=== PATIENT | female | born 1980 | race Two or more races ===

== ENCOUNTER 2020-10-16 12:37 | Emergency (ER) | payer OTHER, SELFPAY ==
[2020-10-16] VITALS (8 sets, daily range): BP systolic 102–158; BP diastolic 51–88; PULSE 56–92; RESP 18–20; TEMP 36.6–37; O2SAT 98–100; BMI 37.8
--- NOTE | 2020-10-16 11:03 | ECG_ITS ---
Test Reason : SYNCOPE Blood Pressure : / mmHG Vent. Rate : 062 BPM Atrial Rate : 062 BPM P-R Int : 118 ms QRS Dur : 082 ms QT Int : 398 ms P-R-T Axes : 024 020 014 degrees QTc Int : 403 ms Normal sinus rhythm Normal ECG When compared with ECG of 06-APR-2020 07:25, No significant change was found Referred By: Daphnie Lewis Electronically Signed By:HAYLEE LUGO MD
[2020-10-16] MEDS: Acetaminophen 325 MG TABLET PO (17:16)
[2020-10-16] MEDS: Acetaminophen 325 MG TABLET 650 MG PO (17:16)
--- NOTE | 2020-10-16 17:19 | CT_ITS ---
EXAMINATION: CT HEAD WITHOUT CONTRAST CT CERVICAL SPINE WITHOUT CONTRAST CLINICAL INFORMATION: Fall COMPARISON: None. TECHNIQUE: Multidetector CT imaging of the head and cervical spine was performed without the use of intravenous contrast. Multiplanar reformats are reviewed. This CT examination was performed using dose optimization techniques as appropriate, variously including the following: *Automated exposure control *Adjustment of mA and/or kV according to patient size (this includes techniques or standardized protocols for targeted exams where dose is matched to indication/reason for exam; i.e. extremities or head) *Use of iterative reconstruction technique DLP: 1095 mGy-cm. FINDINGS: There is no evidence of acute intracranial hemorrhage or territorial infarction. No abnormal mass effect or midline shift is seen. Norton to white matter differentiation is well preserved. No extra-axial fluid collections are identified. The ventricles are normal in size. There is no abnormal attenuation within the brain parenchyma. Thin right parietal subgaleal hematoma. Underlying calvarium is intact.. Mucus retention cyst present within the right maxillary sinus. Remainder of the paranasal sinuses are clear. Mastoid air cells are clear. Atlantooccipital alignment is maintained. The vertebral bodies and posterior elements align normally. No acute fracture or subluxation. Vertebral body heights and intervertebral disc spaces are preserved. No significant degenerative changes are appreciated. No central canal or foraminal narrowing. The cervicomedullary junction and spinal cord are grossly unremarkable. The paraspinal soft tissues are unremarkable. The imaged lung apices are clear CT/CT cervical spine wo con IMPRESSION: No acute intracranial pathology. No cervical spine fracture or malalignment.
--- NOTE | 2020-10-16 17:42 | ED.SYNCOPE ---
HPI - Syncope General Chief Complaint: Syncope Stated Complaint: ? seizure Time Seen by Provider: 10/16/20 14:46 Source: patient Mode of arrival: ambulatory Limitations: no limitations History of Present Illness HPI narrative: 40-year-old female who presents emergency department for evaluation of a syncopal episode. The patient states that last night around midnight she became dizzy. She states that she felt like she was going to pass out. She states that she got up until 2 or 3 steps, the dizziness got worse and she fell backwards striking her head. She states that she had a 2-3 minute loss of consciousness. She states that she had no memory of falling. The patient states that she gets dizzy often but has never passed out. She states that approximately 1 and half months prior she was sitting in her kitchen when she again felt dizzy as if she was going to pass out. She states that her hands became numb. She states that her legs became numb. She states that she walked to her bedroom and then collapsed into our bed since she had no strength. She states that her symptoms lasted 10-15 minutes at that time. Patient also states that she has had episodes that when she had episodes of confusion when she is driving. She states that occasionally while driving, she does not know where she is and has difficulty orienting herself. She also states that her night vision is poor and this has gotten worse. The patient is currently complaining of headache. She states that the pain is located in the back of her head where she struck her head on the floor. She says the headache as a constant, throbbing sensation which is moderate in intensity. She denied nausea, vomiting, numbness or weakness. Related Data Allergies Allergy/AdvReac Type Severity Reaction Status Date / Time morphine [MORPHINE] Allergy Unknown DIFFICULTY Verified 10/16/20 12:43 BREATHING Review of Systems Review of Systems: Yes all other systems are reviewed and are negative Constitutional: Constitutional: Reports as per HPI Eyes: Eyes: Reports as per HPI ENT: Reports as per HPI Cardiovascular: Cardiovascular: Reports as per HPI Respiratory: Respiratory: Reports as per HPI Gastrointestinal: Gastrointestinal: Reports as per HPI Genitourinary: Genitourinary: Reports as per HPI Musculoskeletal: Musculoskeletal: Reports as per HPI Integumentary/Breasts: Skin/Breast: Reports as per HPI Neurologic: Reports as per HPI and Reports Abnormal speech present Psychiatric: Psychiatric: Reports as per HPI Allergic/Immunologic: Allergic/Immunologic: Reports as per HPI [facility] Past Medical History Attestation statement: The following information was validated with the patient. Medical History Cervical ca Surgical History H/O tubal ligation History of cholecystectomy Social History Social History Alcohol intake: never Smoked in Last 30 Days: No Use of substances other than those prescribed or required for medical reasons: No Advance Directives: No Advance Directives Information Provided: No Physical Exam Vital Signs: Vital Signs: Last Vital Signs Temp 98 F 10/16/20 15:28 Pulse 70 10/16/20 15:28 Resp 19 10/16/20 15:28 BP 119/77 10/16/20 15:28 Pulse Ox 100 10/16/20 15:28 Body Mass Index 37.8 Const: General: cooperative, no acute distress, alert and awake Orientation/consciousness: oriented to person and oriented to place Limitations: no limitations HENMT: Head: Yes normal to inspection, Yes normocephalic and Yes other (The patient has a small occipital hematoma which is tender to palpation) Ears: external ears normal General nose exam: Normal external nose present Face and sinus: Yes normal facial exam Mouth: Normal oral and palatal mucosa present Throat: Yes posterior oropharynx normal Eyes: General: appearance normal, both eyes and all related structures Periorbital: periorbital findings normal Eyelids: Yes eyelids normal Conjunctivae: conjunctivae normal Sclerae: sclerae normal Corneas: corneas normal Pupils: Equal, round and reactive pupils present Direct Ophthalmoscopy: normal light reflex Neck: Neck: Yes normal visual inspection and Yes supple Lymphatic: no lymphadenopathy noted Chest: Chest palpation & inspection: normal inspection of the chest and normal palpation of entire chest wall Resp: Effort & Inspection: normal respiratory effort, abnormal respiratory pattern, no audible wheezes and no respiratory distress Auscultation: clear to auscultation bilaterally, no crackles, no rales, no rhonchi and no wheezes Cardio: Rate: regular rate Rhythm: regular rhythm Heart sounds: S1 normal heart sound present, S2 normal heart sound present and no murmurs GI: Inspection: No distended Palpation (GI): Soft to palpation, nontender, no guarding and No hepatosplenomegaly present Auscultation: normal bowel sounds : General: Yes no CVA tenderness Back/Spine/Pelvis: Back: no CVA tenderness Skin: General skin exam: no rashes or lesions noted Lesions: no lesions Rashes: no rashes Wounds: no wounds Neuro: General: oriented to person and oriented to place Cranial nerves: Yes CN's II-XII intact bilaterally and Yes Equal, round and reactive pupils present Cognition (Neuro): normal cognition Speech: Abnormal speech present Motor exam (neuro): 5/5 motor strength present throughout Extrem: General: Yes normal to inspection, Yes full ROM, Yes no pedal edema and Yes no calf tenderness Psych: Appearance: grossly normal Mental Status: mental status grossly normal Speech and movement: Clear speech present Affect: normal affect Thought process: Normal thought process present Course Course Course Narrative: 40-year-old female who presents to the emergency department for evaluation of a syncopal episode that occurred around midnight which caused her to fall backwards and strike her head. She did have a 2-3 minute loss of consciousness. She has a headache and does have a small palpable hematoma to her scalp. This is the patient's 2nd syncopal episode and she had an episode approximately 1 and half months prior. The patient's neurologic exam was nonfocal. The patient's 12 lead EKG revealed no acute abnormalities. I did order a CT scan of the patient's head and neck. I also ordered a cardiac workup on this patient. The patient's headache was treated with Tylenol 975 mg orally. 1803: Unfortunately, there was a laboratory and x-ray were during her on my part and the patient has had a delay in her workup. The patient's care was turned over to my colleague, Dr. Daphnie Churchill's for disposition. MDM - Syncope ECG Data Attestation: I personally reviewed and interpreted this ECG as follows: ECG interpretation date: 10/16/20 ECG interpretation time: 15:50 Prior ECG tracings: not available for review Interpretation: Normal sinus rhythm with rate of 62, normal intervals, inverted T-wave in lead 3, no ST segment elevation, no ST segment depression, normal EKG. Discharge Plan Discharge Clinical Impression: Syncope, Fall, Closed head injury
[2020-10-16 18:18] LABS: MANUAL DIFF FLAG NO
[2020-10-16 18:19] LABS: Basophils Percent Auto 0.3 % (0-2); Eosinophils Percent Auto 0.3 % (0-4); Hematocrit 40.6 % (37-47); Hemoglobin 13.4 g/dl (12.0-16.0); Imm Gran Abs Auto 0.04 X10*3/uL (0.00-0.03); Imm Gran Pct Auto 0.4 % (0.0-0.4); Lymphocytes Absolute Auto 1.9 X10*3/uL (1.2-4.9); Lymphocytes Percent Auto 18.5 % (20-40); Mean Corpuscular Volume 84.8 fL (80-98); Mean Platelet Volume 9.6 fL (9.4-12.3); Monocytes Percent Auto 10.4 % (2-11); Neutrophils Percent Auto 70.1 % (45-73); Platelet Count 445 X10*3/uL (160-400); Red Blood Count 4.79 X10*6/uL (4.20-5.50); Red Cell Distribution Width 15.2 % (11.0-16.0)
[2020-10-16 18:21] LABS: Glucose Urine UA NEG (NEG); Leukocyte Esterase Urine NEG (NEG); Nitrite Urine NEG (NEG); PH 5.5 (5.0-8.0); Specific Gravity - Urine >= 1.030 (1.005-1.025); Urine Blood NEG (NEG); Urine Ketones NEG (NEG); Urine Protein TRACE MG/DL (NEG-TRACE)
[2020-10-16 18:22] LABS: Appearance Urine CLEAR; Color Urine DARK YELLOW
[2020-10-16 19:50] LABS: Alanine Aminotransferase 11 U/L (0-31); Albumin Level 4.1 g/dL (3.5-5.0); Alkaline Phosphatase 115 U/L (39-117); Anion Gap 14 (12-20); Aspartate Amino Transferase 13 U/L (5-31); Bilirubin Direct 0.4 mg/dL (0.0-0.5); Bilirubin Total 0.8 mg/dL (0.0-1.0); Blood Urea Nitrogen 10 mg/dL (9-16); Carbon Dioxide 22 mmol/L (22-29); Chloride 106 mmol/L (96-108); Creatinine Clr Calc Pharmacy 121.7; Estimated Glomerular Filt Rate > 60; Glucose Random 84 mg/dL (60-115); Potassium 3.5 mmol/l (3.3-5.1); Sodium 138 mmol/L (135-145); Total Protein 7.2 g/dL (6.5-8.0)
[2020-10-16] MEDS: 0.9 % Sodium Chloride 1,000 ML 999 ML IVCONT ×2 (20:15)
== END 2020-10-16 22:16 | disposition home or self-care (01) ==
PROVIDERS: Emergency Medicine Emergency Medical Services; Emergency Provider Emergency Medicine; PCP Internal Medicine
DX: R55 Syncope and collapse (principal); S09.90XA Unspecified injury of head, initial encounter; W19.XXXA Unspecified fall, initial encounter; Y93.9 Activity, unspecified; Y92.013 Bedroom of single-family (private) house as the place of occurrence of the external cause; Y99.9 Unspecified external cause status; Z85.41 Personal history of malignant neoplasm of cervix uteri
CPT/HCPCS: 36415; 70450; 72125; 80048; 80076; 81003; 85025; 93005; 96360; 99284; 99285

== ENCOUNTER 2021-01-28 20:40 | Emergency (ER) | payer OTHER, SELFPAY ==
--- NOTE | 2021-01-28 | ECG_ITS ---
Test Reason : CP Blood Pressure : / mmHG Vent. Rate : 092 BPM Atrial Rate : 092 BPM P-R Int : 130 ms QRS Dur : 082 ms QT Int : 340 ms P-R-T Axes : 032 014 011 degrees QTc Int : 420 ms Sinus rhythm with Premature atrial complexes Otherwise normal ECG When compared with ECG of 16-OCT-2020 15:50, Premature atrial complexes are now Present Vent. rate has increased BY 30 BPM T wave amplitude has decreased in Anterior leads Referred By: Generic ED Physician Electronically Signed By:HAYLEE LUGO MD
[2021-01-28 21:03] VITALS: PULSE 86; RESP 16; TEMP 36.4; O2SAT 99; BMI 35.9
[2021-01-28 22:00] VITALS: BP 126/77; PULSE 85; RESP 15; O2SAT 99
--- NOTE | 2021-01-28 22:58 | ED_ITS ---
HPI - Arrhythmia/Palpitations General Chief Complaint: Arrhythmia/Palpitations Stated Complaint: Palpitations Time Seen by Provider: 01/28/21 22:58 Source: patient Mode of arrival: ambulatory Limitations: no limitations History of Present Illness HPI narrative: Patient with history of palpitations off and on for last few months on event monitor for last 1 month noticed palpitation episode again at home HR increase up to 120 beats per minute and felt dizzy called her corporate director of human resources who could not read her event monitor and advised her to go to the hospital to be checked at this time patient on arrival heart rate was beating sinus rhythm 70 beats per minute complaint: palpitations Onset (ago): hour(s) Related Data Allergies Allergy/AdvReac Type Severity Reaction Status Date / Time morphine [MORPHINE] Allergy Unknown DIFFICULTY Verified 10/16/20 12:43 BREATHING Review of Systems Review of Systems: Constitutional : No Weight loss, No Fever, No Chills ENT/Mouth : No sore throat, No Rhinorrhea Eyes: No Eye Pain, No Swelling Cardiovascular : No Chest Pain, ++ palpitations Respiratory : No Cough, No Sputum, no shortness of breath Gastrointestinal : no Nausea, No Vomiting, No Diarrhea, No abdominal Pain, no black stools Genitourinary : No Dysuria, No Urinary Frequency Musculoskeletal : No joint pain, No Myalgias, No Joint Swelling Skin : No Skin Lesions, No rash Neuro : No Weakness, No Numbness, ++ Dizziness, No Headache Psych : No Anxiety/Panic, No Depression Heme/Lymph: No Bruising, No Lymphadenopathy Endocrine : No Polyuria, No Polydipsia All other systems reviewed and are negative [facility] Past Medical History Medical History Cervical ca Surgical History H/O tubal ligation History of cholecystectomy Social History Social History Alcohol intake: never Smoking Status: Never smoker Use of substances other than those prescribed or required for medical reasons: No Advance Directives: No Advance Directives Information Provided: Yes Physical Exam Vital Signs: Vital Signs: Last Vital Signs Temp 97.5 F 01/28/21 21:03 Pulse 86 01/28/21 21:03 Resp 16 01/28/21 21:03 Pulse Ox 99 01/28/21 21:03 Body Mass Index 35.9 Appearance: Alert. Oriented X3. No acute distress. Eyes: Pupils equal, round and reactive to light. ENT: Pharynx normal. Neck: Normal inspection. Neck supple. CVS: Normal heart rate and rhythm. Pulses normal. Respiratory: No respiratory distress. Breath sounds normal. Abdomen: Soft and nontender. Bowel sounds are present, no mass palpable, Skin: Skin warm and dry. Normal skin color. Normal skin turgor. Extremities: No lower extremity edema. Neuro: Oriented X 3. No motor deficit. No sensory deficit. MDM - Arrhythmia/Palpitations MDM Narrative Medical decision making narrative: compliance monitor showed sinus rhythm with few PACs during stay in the ER patient remained asymptomatic will discharge patient home advised to follow-up with her corporate director of human resources Differential Diagnosis Differential diagnosis: Likely palpitations ECG Data Attestation: I personally reviewed and interpreted this ECG as follows: Interpretation: Sinus rhythm heart rate 92 beats per minute frequent PACs no acute ST T wave changes no acute ischemia Discharge Plan Discharge Clinical Impression: Palpitations Patient Disposition: Home, Self-Care Instructions: Premature Atrial Contractions (ED) Additional Instructions: Follow-up with corporate director of human resources as planned
== END 2021-01-28 23:57 | disposition home or self-care (01) ==
PROVIDERS: Emergency Provider Internal Medicine; PCP Internal Medicine
DX: R00.2 Palpitations (principal); R42 Dizziness and giddiness; Z85.41 Personal history of malignant neoplasm of cervix uteri; Z90.49 Acquired absence of other specified parts of digestive tract
CPT/HCPCS: 93005; 99283; 99285

== ENCOUNTER 2022-10-22 13:30 | Emergency (ER) | payer OTHER, SELFPAY ==
--- NOTE | ~2022-10-22 | XR_ITS ---
EXAMINATION: XR CHEST CLINICAL INFORMATION: Chest pain. COMPARISON: 08/03/2019 chest radiograph. TECHNIQUE: Frontal view of the chest was obtained. FINDINGS: No significant abnormality is noted involving the heart, lungs, mediastinum, bony thorax or soft tissues. XR/XR chest 1V IMPRESSION: No acute cardiopulmonary process.
--- NOTE | ~2022-10-22 | CT_ITS ---
EXAMINATION: CT ANGIOGRAM NECK AND HEAD CLINICAL INFORMATION: Chest pain radiating into left side of neck COMPARISON: Head CT 10/16/2020 TECHNIQUE: Initial noncontrast head CT was performed. Test bolus sequences followed by intravenous administration 8100 3350 mL of Ultravist-370. Helical imaging was performed in the axial plane from the thoracic inlet to the skull vertex. Delayed postcontrast imaging of the head was also performed. The data was processed at the fish technologist's workstation for generation of MIP sequences. Angled MIPs and volume rendered reformatted images were also generated at an offline 3D workstation. Stenoses are assessed in accordance with NASCET criteria unless otherwise indicated. DOSE LOWERING TECHNIQUES: This CT examination was performed using dose optimization techniques as appropriate, variously including the following: - Automated exposure control - Adjustment of mA and/or kV according to patient size (this includes techniques or standardized protocols for targeted exams were dose is matched to indication/reason for exam; i.e. extremities or head) - Use of iterative reconstruction technique DLP: 2178 mGy-cm FINDINGS: Neck CTA: There is a classic 3 vessel branching pattern of the aortic arch. Normal appearance of the visualized aortic arch and proximal branches. No evidence of stenosis at the branch origins. Both vertebral arteries are widely patent throughout their extracranial cervical course. Normal appearance of the common and internal carotid arteries without focal stenosis. Brain CTA: Normal appearance of the intradural vertebral arteries. Normal appearance of the basilar and superior cerebellar arteries. Normally opacified posterior cerebral arteries bilaterally. Normal appearance of the intradural internal carotid arteries without focal stenosis. The A1 segment of the right anterior cerebral artery appears atretic. Otherwise normal appearance of the anterior cerebral and middle cerebral arteries without focal occlusion or stenosis. Normal anterior communicating artery. Normal arborization of the middle cerebral arteries. CT Head: No intracranial mass, hemorrhage, extra-axial collection, or midline shift. The herzog-white matter differentiation is preserved. No pathologic intra-axial enhancement or regional oligemia. No hydrocephalus. The mastoid air cells and paranasal sinuses remain well aerated. CT Neck: The thyroid gland and remaining cervical soft tissues are normal in appearance. No cervical spine abnormalities demonstrated. Upper Chest: No abnormalities in the visualized lung apices or upper mediastinum. CT/CT angio head neck IMPRESSION: No acute intracranial findings. No hemodynamically significant stenosis in the major arteries of the neck. No large vessel occlusion or significant stenosis in the intracranial circulation.
--- NOTE | ~2022-10-22 | CT_ITS ---
EXAMINATION: CT CHEST WITH CONTRAST CLINICAL INFORMATION: Acute chest pain COMPARISON: 06/14/2012 TECHNIQUE: Multidetector volumetric CT imaging of the chest was obtained after the administration of 50 mL of Omnipaque 350 intravenous contrast without immediate adverse reactions. Axial MIP volume rendering provided. Sagittal and coronal reformatted images were obtained. This CT examination was performed using dose optimization techniques as appropriate, variously including the following: *Automated exposure control *Adjustment of mA and/or kV according to patient size (this includes techniques or standardized protocols for targeted exams where dose is matched to indication/reason for exam; i.e. extremities or head) *Use of iterative reconstruction technique DLP: 760 mGy-cm FINDINGS: RECRUITMENT AND OUTREACH ASSISTANT: Noncontributory LUNGS: The lungs are clear with no evidence of inflammation or nodules. MEDIASTINUM: The mediastinum is normal. PLEURA: There is no pleural effusion. No pleural mass or thickening. AXILLA: No lymphadenopathy. UPPER ABDOMEN: Clips consistent with cholecystectomy. OSSEOUS STRUCTURES: Unremarkable. CT/CT chest w IV con IMPRESSION: No significant abnormality. Fleischner guidelines were followed.
[2022-10-22 15:30] VITALS: BP 165/90; PULSE 68; RESP 16; O2SAT 100; BMI 36.8
--- NOTE | 2022-10-22 15:30 | ED_ITS ---
HPI - General Adult General Chief complaint: Chest Pain <ANDRE Ramirez - Last Filed: 10/22/22 15:35> Stated complaint: CP ,neck/shoulder pain. no inj <ANDRE Ramirez - Last Filed: 10/22/22 15:35> Time Seen by Provider: 10/22/22 18:09 <ANDRE Ramirez - Last Filed: 10/22/22 15:35> Source: patient <ANDRE Suero - Last Filed: 10/22/22 21:58> Mode of arrival: ambulatory <ANDRE Suero Last Filed: 10/22/22 21:58> Limitations: no limitations <ANRDE Suero Last Filed: 10/22/22 21:58> History of Present Illness HPI narrative: This is a 42-year-old female history of tachycardia presenting to the emergency department complaints of chest pain times a few weeks progressively worsening over the past few days.? Patient tells me she has substernal chest pain that radiates into the left arm and into the left side of her neck, she tells me pain is 7/10 intermittent in nature, stabbing.? She tells me she feels significant discomfort at times to the left side of her neck.? She tells me her PCP diagnosed her with tachycardia and told her to come in today for evaluation of chest pain.? She denies any trauma.? No significant personal or family cardiac history.? No history of sudden cardiac .? Patient is not a smoker, no history of hypercoagulable disorders, no long travel, not on control, no history of DVT or PE.? Patient reports that she was supposed to see a senior web developer however never got to it.? Denies shortness of breath, headache, vision changes, dizziness, weakness, nausea, vomiting, abdominal pain. <ANDRE Suero Last Filed: 10/22/22 21:58> Related Data Allergies/adverse reactions: Allergies Allergy/AdvReac Type Severity Reaction Status Date / Time morphine [MORPHINE] Allergy Unknown DIFFICULTY Verified 10/16/20 12:43 BREATHING <ANDRE Ramirez Last Filed: 10/22/22 15:35> Review of Systems Review of Systems: Constitutional : No Weight loss, No Fever, No Chills, No Fatigue, No Malaise ENT/Mouth : No sore throat, No Rhinorrhea Eyes: No Eye Pain, No Swelling, No Redness Cardiovascular : + Chest Pain, No SOB, No Dyspnea on Exertion, No Orthopnea, No Edema, No Palpitations Respiratory : No Cough, No Sputum, No Wheezing Gastrointestinal : No Nausea, No Vomiting, No Diarrhea, No Constipation, No abdominal Pain, No Hematochezia, No Melena Genitourinary : No Dysuria, No Urinary Frequency, No Hematuria, Musculoskeletal : No joint pain, No Myalgias, No Joint Swelling Skin : No Skin Lesions, No rash Neuro : No Weakness, No Numbness, No Dizziness, No Headache Psych : No Anxiety/Panic, No Depression <ANDRE Suero - Last Filed: 10/22/22 21:58> Yes all other systems are reviewed and are negative <ANDRE Suero - Last Filed: 10/22/22 21:58> [facility] Past Medical History Attestation statement: The following information was validated with the patient. <ANDRE Suero - Last Filed: 10/22/22 21:58> Source: old records reviewed and nursing notes reviewed <ANDRE Suero - Last Filed: 10/22/22 21:58> Medical History: Medical History Cervical ca <ANDRE Ramirez - Last Filed: 10/22/22 15:35> Surgical History: Surgical History H/O tubal ligation History of cholecystectomy <ANDRE Ramirez - Last Filed: 10/22/22 15:35> Social History Social History: Social History Alcohol intake: never Advance Directives: No Advance Directives Information Provided: Yes <ANDRE Ramirez - Last Filed: 10/22/22 15:35> Physical Exam ED Vital Signs: Vital Signs - 24 hr 10/22/22 15:30 10/22/22 19:12 Temperature 99.5 F Pulse Rate 68 67 Respiratory Rate 16 18 Blood Pressure 165/90 H 151/81 H Pulse Oximetry 100 100 Oxygen Delivery Method Room Air Room Air BMI result Body Mass Index 36.8 <ANDRE Ramirez - Last Filed: 10/22/22 15:35> Vital Signs - 24 hr 10/22/22 15:30 10/22/22 19:12 Temperature 99.5 F Pulse Rate 68 67 Respiratory Rate 16 18 Blood Pressure 165/90 H 151/81 H Pulse Oximetry 100 100 Oxygen Delivery Method Room Air Room Air BMI result Body Mass Index 36.8 vss <ANDRE Suero - Last Filed: 10/22/22 21:58> Appearance: Alert.? Oriented X3.? No acute distress.? Head:? Normocephalic, atraumatic, no step-offs or deformities Eyes: Pupils equal, round and reactive to light.? ENT: Pharynx normal.? Neck: Normal inspection.? Neck supple.? CVS: Normal heart rate and rhythm.? Pulses normal.? No pain with palpation of anterior chest wall.? No appreciated murmurs on exam even with positional changes. ? Respiratory: No respiratory distress.? Breath sounds normal.? Abdomen: Soft and nontender.? Skin: Skin warm and dry.? Normal skin color.? Normal skin turgor.? Extremities: No lower extremity edema.? No calf ttp.? 5/5 strength to bilateral upper and lower extremities Neuro: Oriented X 3.? No motor deficit.? No sensory deficit. CN 2-12 intact <ANDRE Suero - Last Filed: 10/22/22 21:58> Course Course Course Narrative: RME - 42 y/o female with history of arthritis, prior tachycardia s/p Holter monitor in the past presents to the ER with left sided chest pains that started last night. She states she woke up this morning and the pain had traveled to her neck, shoulder and back. Pain is constant and described as stabbing and heavy. +nausea but no SOB or diaphoresis. Describes fluttering from the chest into the neck. No hx UT, no HTN, HLD, DM. Nonsmoker. Hypertensive 165/90 with HR 70s on arrival. Appears well. Left chest wall with mild tenderness. Lungs clear, RRR. Will get cardiac workup. Plan per main ED provider. <ANDRE Ramirez - Last Filed: 10/22/22 15:35> Reevaluation(s) Reevaluation #1: CBC appears to be within normal limits.? Chemistry with no acute findings.? Troponin negative, EKG nonischemic, unlikely that this is ACS however 2nd troponin scheduled for 9:11.? No need for BNP no signs of fluid overload on exam.? Flu/COVID/RSV negative. No acute cardiopulmonary process in the chest. <ANDRE Suero - Last Filed: 10/22/22 21:58> Time: 19:34 <ANDRE Suero Last Filed: 10/22/22 21:58> Reevaluation #2: Patient did not want to wait for 2nd troponin.? However I do have low suspicion for ACS her initial on is negative, HEART score 0.? UA without infection.? CT of the chest and CTA of head and neck with no acute findings. At this time patient will be discharged home advised to return with new or worsening symptoms.? Educated her on worrisome signs and symptoms and when to return.? Gave her cardiology follow-up.? At this time I feel comfortable discharge home with prompt PCP and cardiology follow-up.? Comfortable discharge <ANDRE Suero - Last Filed: 10/22/22 21:58> Time: 21:53 <ANDRE Suero - Last Filed: 10/22/22 21:58> Medications Administered Discontinued Medications Generic Name Dose Route Start Last Admin Trade Name Freq PRN Reason Stop Dose Admin Iohexol 100 ml 10/22/22 20:19 10/22/22 20:19 Iohexol 350 Mg/Ml 100 Ml Infus..Btl IV 10/22/22 20:20 80 ml ONCE ONE Administration Ketorolac Tromethamine 30 mg 10/22/22 20:24 10/22/22 20:40 Ketorolac Tromethamine 30 Mg/Ml Vial IM 10/22/22 20:25 30 mg ONCE ONE Administration <ANDRE Ramirez - Last Filed: 10/22/22 15:35> Medications Administered Discontinued Medications Generic Name Dose Route Start Last Admin Trade Name Freq PRN Reason Stop Dose Admin Iohexol 100 ml 10/22/22 20:19 10/22/22 20:19 Iohexol 350 Mg/Ml 100 Ml Infus..Btl IV 10/22/22 20:20 80 ml ONCE ONE Administration Ketorolac Tromethamine 30 mg 10/22/22 20:24 10/22/22 20:40 Ketorolac Tromethamine 30 Mg/Ml Vial IM 10/22/22 20:25 30 mg ONCE ONE Administration <ANDRE Suero - Last Filed: 10/22/22 21:58> Medical Decision Making Medical Decision Making MDM Narrative: 42-year-old female presents with complaints of chest pain substernal with radiation to left arm and left side of neck x2 weeks worsening over the past few days.? No significant cardiac history. Physical examination benign. Will rule out ACS although unlikely, will obtain EKG to rule out dysrhythmia.? Unlikely PE patient PERC negative and without risk factors.? Will obtain labs to rule out electrolyte abnormalities, UTI.? I do not suspect pneumonia. Plan labs, imaging, urine <ANDRE Suero - Last Filed: 10/22/22 21:58> Discharge Plan Discharge Clinical Impression: Chest pain, Palpitations <ANDRE Ramirez - Last Filed: 10/22/22 15:35> Patient Disposition: Home, Self-Care <ANDRE Ramirez - Last Filed: 10/22/22 15:35> Instructions: Chest Pain (DC) <ANDRE Ramirez - Last Filed: 10/22/22 15:35> Additional Instructions: Take your medications as prescribed. If you were prescribed antibiotics today, it is important that you take your medication to their entirety, do not skip any doses, do not finish them early. Follow-up with your primary care provider this week. Follow up with cardiology Return to the emergency department with new or worsening symptoms. Such as fevers, chills, chest pain, shortness of breath, nausea, vomiting, dizziness, headache, vision changes, lethargy In case of emergency call 911 CT/CT chest w IV con IMPRESSION: No significant abnormality. ? Fleischner guidelines were followed. CT/CT angio head neck IMPRESSION: No acute intracranial findings. No hemodynamically significant stenosis in the major arteries of the neck. No large vessel occlusion or significant stenosis in the intracranial circulation. ?XR/XR chest 1V IMPRESSION: No acute cardiopulmonary process. ? <ANDRE Ramirez - Last Filed: 10/22/22 15:35> Referrals: [facility] [Provider Group] - 1 week Madison Sesay MD [Primary Care Provider] - 2 days <ANDRE Ramirez - Last Filed: 10/22/22 15:35> Stand Alone Forms: Work/School Release <ANDRE Ramirez - Last Filed: 10/22/22 15:35>
--- NOTE | 2022-10-22 15:34 | ECG_ITS ---
Test Reason : chest pain Blood Pressure : / mmHG Vent. Rate : 069 BPM Atrial Rate : 069 BPM P-R Int : 118 ms QRS Dur : 076 ms QT Int : 376 ms P-R-T Axes : 020 005 -01 degrees QTc Int : 402 ms Normal sinus rhythm Minimal voltage criteria for LVH, may be normal variant ( R in aVL ) Borderline ECG When compared with ECG of 28-JAN-2021 20:07, Premature atrial complexes are no longer Present Referred By: Laura Quesada Electronically Signed By:GIDLA MARES
[2022-10-22 18:19] LABS: MANUAL DIFF FLAG NO
--- NOTE | 2022-10-22 18:19 | ED.CHESTPAIN ---
HPI - Chest Pain General Chief Complaint: Chest Pain Stated Complaint: CP ,neck/shoulder pain. no inj Time Seen by Provider: 10/22/22 18:09 Source: patient Mode of arrival: ambulatory Limitations: no limitations History of Present Illness HPI narrative: This is a 42-year-old female history of tachycardia presenting to the emergency department complaints of chest pain times a few weeks progressively worsening over the past few days. Patient tells me she has substernal chest pain that radiates into the left arm and into the left side of her neck, she tells me pain is 7/10 intermittent in nature, stabbing. She tells me she feels significant discomfort at times to the left side of her neck. She tells me her PCP diagnosed her with tachycardia and told her to come in today for evaluation of chest pain. She denies any trauma. No significant personal or family cardiac history. No history of sudden cardiac . Patient is not a smoker, no history of hypercoagulable disorders, no long travel, not on control, no history of DVT or PE. Patient reports that she was supposed to see a resistor inspector however never got to it. Denies shortness of breath, headache, vision changes, dizziness, weakness, nausea, vomiting, abdominal pain. Related Data Allergies Allergy/AdvReac Type Severity Reaction Status Date / Time morphine [MORPHINE] Allergy Unknown DIFFICULTY Verified 10/16/20 12:43 BREATHING Review of Systems Review of Systems: Constitutional : No Weight loss, No Fever, No Chills, No Fatigue, No Malaise ENT/Mouth : No sore throat, No Rhinorrhea Eyes: No Eye Pain, No Swelling, No Redness Cardiovascular : + Chest Pain, No SOB, No Dyspnea on Exertion, No Orthopnea, No Edema, No Palpitations Respiratory : No Cough, No Sputum, No Wheezing Gastrointestinal : No Nausea, No Vomiting, No Diarrhea, No Constipation, No abdominal Pain, No Hematochezia, No Melena Genitourinary : No Dysuria, No Urinary Frequency, No Hematuria, Musculoskeletal : No joint pain, No Myalgias, No Joint Swelling Skin : No Skin Lesions, No rash Neuro : No Weakness, No Numbness, No Dizziness, No Headache Psych : No Anxiety/Panic, No Depression All other systems reviewed and are negative Yes all other systems are reviewed and are negative PMFSH Past Medical History Attestation statement: The following information was validated with the patient. Source: old records reviewed and nursing notes reviewed Medical History Cervical ca Surgical History H/O tubal ligation History of cholecystectomy Social History Social History Alcohol intake: never Advance Directives: No Advance Directives Information Provided: Yes Physical Exam Vital Signs: Vital Signs: Last Vital Signs Temp 99.5 F 10/22/22 19:12 Pulse 67 10/22/22 19:12 Resp 18 10/22/22 19:12 BP 151/81 H 10/22/22 19:12 Pulse Ox 100 10/22/22 19:12 O2 Del Method 10/22/22 19:12 BMI result Body Mass Index 36.8 vss Appearance: Alert.? Oriented X3.? No acute distress.? Head: Normocephalic, atraumatic, no step-offs or deformities Eyes: Pupils equal, round and reactive to light.? ENT: Pharynx normal.? Neck: Normal inspection.? Neck supple.? CVS: Normal heart rate and rhythm.? Pulses normal. No pain with palpation of anterior chest wall. No appreciated murmurs on exam even with positional changes. ? Respiratory: No respiratory distress.? Breath sounds normal.? Abdomen: Soft and nontender.? Skin: Skin warm and dry.? Normal skin color.? Normal skin turgor.? Extremities: No lower extremity edema.? No calf ttp. 5/5 strength to bilateral upper and lower extremities Neuro: Oriented X 3.? No motor deficit.? No sensory deficit. CN 2-12 intact Course Reevaluation(s) Reevaluation #1: CBC appears to be within normal limits. Chemistry with no acute findings. Troponin negative, EKG nonischemic, unlikely that this is ACS however 2nd troponin scheduled for 9:11. No need for BNP no signs of fluid overload on exam. Flu/COVID/RSV negative. No acute cardiopulmonary process in the chest. Time: 19:34 Reevaluation #2: Patient did not want to wait for 2nd troponin. However I do have low suspicion for ACS her initial on is negative, HEART score 0. UA without infection. CT of the chest and CTA of head and neck with no acute findings. At this time patient will be discharged home advised to return with new or worsening symptoms. Educated her on worrisome signs and symptoms and when to return. Gave her cardiology follow-up. At this time I feel comfortable discharge home with prompt PCP and cardiology follow-up. Comfortable discharge Time: 21:53 Medications Administered Discontinued Medications Generic Name Dose Route Start Last Admin Trade Name Connor PRN Reason Stop Dose Admin Iohexol 100 ml 10/22/22 20:19 10/22/22 20:19 Iohexol 350 Mg/Ml 100 Ml Infus..Btl IV 10/22/22 20:20 80 ml ONCE ONE Administration Ketorolac Tromethamine 30 mg 10/22/22 20:24 10/22/22 20:40 Ketorolac Tromethamine 30 Mg/Ml Vial IM 10/22/22 20:25 30 mg ONCE ONE Administration Medical Decision Making Medical Decision Making [facility] Narrative: 1822 42-year-old female presents with complaints of chest pain substernal with radiation to left arm and left side of neck x2 weeks worsening over the past few days. No significant cardiac history. Physical examination benign. Will rule out ACS although unlikely, will obtain EKG to rule out dysrhythmia. Unlikely PE patient PERC negative and without risk factors. Will obtain labs to rule out electrolyte abnormalities, UTI. I do not suspect pneumonia. Plan labs, imaging, urine Critical Care Time Critical Care Time Critical Care Time: No Discharge Plan Discharge Clinical Impression: Chest pain, Palpitations Patient Disposition: Home, Self-Care Instructions: Chest Pain (DC) Additional Instructions: Take your medications as prescribed. If you were prescribed antibiotics today, it is important that you take your medication to their entirety, do not skip any doses, do not finish them early. Follow-up with your primary care provider this week. Follow up with cardiology Return to the emergency department with new or worsening symptoms. Such as fevers, chills, chest pain, shortness of breath, nausea, vomiting, dizziness, headache, vision changes, lethargy In case of emergency call 911 CT/CT chest w IV con IMPRESSION: No significant abnormality. ? Fleischner guidelines were followed. CT/CT angio head neck IMPRESSION: No acute intracranial findings. No hemodynamically significant stenosis in the major arteries of the neck. No large vessel occlusion or significant stenosis in the intracranial circulation. ?XR/XR chest 1V IMPRESSION: No acute cardiopulmonary process. ? Referrals: [facility] [place] Cardiovascular Services [Provider Group] - 1 week Madison Sesay MD [Primary Care Provider] - 2 days Stand Alone Forms: Work/School Release
[2022-10-22 18:21] LABS: Basophils Absolute Auto 0.1 X10*3/uL (0.0-0.2); Basophils Percent Auto 0.5 % (0-2); Eosinophils Absolute Auto 0.1 X10*3/uL (0.0-0.4); Eosinophils Percent Auto 0.5 % (0-4); Hematocrit 40.4 % (37.0-47.0); Imm Gran Abs Auto 0.03 X10*3/uL (0.00-0.03); Imm Gran Pct Auto 0.3 % (0.0-0.4); Lymphocytes Absolute Auto 1.7 X10*3/uL (1.2-4.9); Lymphocytes Percent Auto 17.6 % (20-40); Mean Corpuscular HGB Conc 32.2 g/dl (31.0-35.0); Mean Corpuscular Hemoglobin 27.5 pg (27.0-33.0); Mean Corpuscular Volume 85.6 fL (80.0-98.0); Mean Platelet Volume 9.9 fL (9.4-12.3); Monocytes Absolute Auto 0.7 X10*3/uL (0.1-1.2); Monocytes Percent Auto 7.4 % (2-11); Neutrophils Absolute Auto 7.3 x10*3/uL (2.0-8.3); Neutrophils Percent Auto 73.7 % (45-73); Platelet Count 357 X10*3/uL (160-400); Red Blood Count 4.72 X10*6/uL (4.20-5.50); Red Cell Distribution Width 14.4 % (11.0-16.0); White Blood Count 9.9 X10*3/uL (4.8-10.8)
[2022-10-22 18:40] LABS: COVID-19 Test Negative (Negative); IDNOW Serial# 16C4AD1C; IDNOW Serial# 9DB6401D; Influenza A Negative (Negative); Influenza B2 Negative (Negative)
[2022-10-22 18:44] LABS: Alanine Aminotransferase 12 U/L (0-31); Albumin Level 4.3 g/dL (3.5-5.0); Alkaline Phosphatase 104 U/L (39-117); Anion Gap 14 (12-20); Aspartate Amino Transferase 17 U/L (5-31); Bilirubin Direct 0.2 mg/dL (0.0-0.5); Bilirubin Total 0.5 mg/dL (0.0-1.0); Blood Urea Nitrogen 13 mg/dL (9-16); Calcium 9.6 mg/dL (8.4-10.2); Carbon Dioxide 20 mmol/L (22-29); Chloride 108 mmol/L (96-108); Creatinine Clr Calc Pharmacy 117.6; Estimated Glomerular Filt Rate > 60; Glucose Random 77 mg/dL (60-115); Magnesium 1.9 mg/dL (1.6-2.6); Potassium 4.1 mmol/L (3.3-5.1); Sodium 138 mmol/L (135-145); Total Protein 7.5 g/dL (6.5-8.0)
[2022-10-22 19:12] VITALS: BP 151/81; PULSE 67; RESP 18; TEMP 37.5; O2SAT 100
[2022-10-22 19:20] LABS: Troponin-I High Sensitivity < 3.5 ng/L (<3.5-17.0)
[2022-10-22 19:36] LABS: Appearance Urine Turbid; Color Urine Yellow; Glucose Urine UA Negative (Negative); Leukocyte Esterase Urine Negative (Negative); Nitrite Urine Negative (Negative); PH 7.5 (5.0-9.0); Urine Blood Negative (Negative); Urine Ketones Negative (Negative); Urine Protein Negative (Neg-Trace)
--- NOTE | 2022-10-22 20:15 | PC.NURSE ---
Assumed care of pt. at 1900. Placed IV for cat scan and pending results.
[2022-10-22] MEDS: iohexoL 350 MG/ML 100 ML INFUS..BTL IV (20:19)
[2022-10-22] MEDS: Ketorolac Tromethamine 30 MG/ML VIAL IM (20:40)
== END 2022-10-22 22:01 | disposition home or self-care (01) ==
PROVIDERS: Physician Assistant; Emergency Provider Internal Medicine; PCP Internal Medicine
DX: R07.89 Other chest pain (principal); R00.2 Palpitations; M25.512 Pain in left shoulder; M54.2 Cervicalgia; R51.9 Headache, unspecified; M25.511 Pain in right shoulder; Z20.822 Contact with and (suspected) exposure to COVID-19; Z79.899 Other long term (current) drug therapy
CPT/HCPCS: 70496; 70498; 71045; 71260; 80048; 80076; 81003; 83735; 84484; 85025; 87502; 87635; 93005; 96372; 99284; J1885; Q9967

== ENCOUNTER 2023-10-19 08:47 | Outpatient (AMB) | payer BC, SELFPAY ==
[2023-10-19 09:57] VITALS: BP 140/82; PULSE 80; TEMP 36.6; O2SAT 97
--- NOTE | 2023-10-19 09:57 | MHC.OFFWIV ---
Intake Vital Signs 10/19/23 09:57 Height 5 ft 1 in BP 140/82 H Blood Pressure Location Rt brachial Position Sitting Pulse 80 Pulse Source Pulse Oximeter Temp 97.9 F Temp Source Temporal Artery Scan Pulse Oximetry (%) 97 Oxygen Delivery Method Room Air Intake Visit Reasons: EP, vaginal bleeding Intake Note: pt is here for c.o vaginal bleeding 2x months, also a mole on shoulder concerns Allergies morphine [MORPHINE] Allergy (Unknown, Verified 10/19/23 09:58) DIFFICULTY BREATHING Do you need a note to return to daycare/school/sports/work: Yes HPI HPI Comments History of Present Illness Details 1006 43-year-old female presents with heavy vaginal bleeding for the past few weeks, has been very irregular lately, she reports she is bleeding through 2 pads per hour, she has tried to get in to see a specialist however has not had any luck. Patient tells me she is also very concerned because she has lost 50 lb over the past 5-6 months unintentionally, also reporting constant fatigue, malaise, pelvic pain. No personal history of malignancy or family history that she knows of. Also has noticed a mole on her shoulder. Patient reports she is going to get seen for the mole in February of next year. Is not currently followed by PCP. History and physical exam patient did not want a pelvic exam because she states she is currently bleeding. Jose medical imaging technologist at bedside as witness History and physical exam concerning for possible premenopausal versus malignancy versus fibroids versus abnormal vaginal bleeding. Also concerning for acute blood loss anemia electrolyte derangements. This is not appropriate to manage from an urgent care setting, due to weight loss, fatigue, malaise and heavy vaginal bleeding patient requires further workup including labs, possible imaging. Expect called in to [facility] Medical History Cervical ca Surgical History H/O tubal ligation History of cholecystectomy Social History Alcohol intake: never Review of Systems Const Details: Constitutional : No Weight loss, No Fever, No Chills, No Fatigue, No Malaise ENT/Mouth : No sore throat, No Rhinorrhea Eyes: No Eye Pain, No Swelling, No Redness Cardiovascular : No Chest Pain, No SOB, No Dyspnea on Exertion, No Orthopnea, No Edema, No Palpitations Respiratory : No Cough, No Sputum, No Wheezing Gastrointestinal : No Nausea, No Vomiting, No Diarrhea, No Constipation, No abdominal Pain, No Hematochezia, No Melena Genitourinary : No Dysuria, No Urinary Frequency, No Hematuria, + vaginal bleeding Musculoskeletal : No joint pain, No Myalgias, No Joint Swelling Skin : No Skin Lesions, No rash Neuro : No Weakness, No Numbness, No Dizziness, No Headache Psych : No Anxiety/Panic, No Depression All other systems reviewed and are negative All systems reviewed & are unremarkable except as noted in HPI and below Physical Exam Vital Signs: Last Vital Signs Temp 97.9 F 10/19/23 09:57 Pulse 80 10/19/23 09:57 BP 140/82 H 10/19/23 09:57 Pulse Ox 97 10/19/23 09:57 Oxygen Delivery Method Room Air 10/19/23 09:57 vss Appearance: Alert.? Oriented X3.? No acute distress.? Head: Normocephalic, atraumatic, no step-offs or deformities Eyes: Pupils equal, round and reactive to light. Neck: Normal inspection.? Neck supple.? CVS: Normal heart rate and rhythm.? Pulses normal.? Respiratory: No respiratory distress.? Breath sounds normal.? Abdomen: Soft and nontender.? Skin: Skin warm and dry.? Normal skin color.? Normal skin turgor.? Extremities: No lower extremity edema.? No calf ttp. 5/5 strength to bilateral upper and lower extremities Neuro: Oriented X 3.? No motor deficit.? No sensory deficit. CN 2-12 intact Assessment & Plan Assessment & Plan (1) Vaginal bleeding: Code(s): N93.9 - Abnormal uterine and vaginal bleeding, unspecified (2) Unintentional weight loss: Code(s): R63.4 - Abnormal weight loss Plan Patient will go to [facility] Emergency Department Expect called to maintenance painter apprentice Lisa. Coding Level of Care Code Est Pt Level 3 (46065) Diagnoses Vaginal bleeding N93.9 Unintentional weight loss R63.4
== END 2023-10-19 10:57 | disposition home or self-care (01) ==
PROVIDERS: PCP Internal Medicine; Visit Provider Physician Assistant
DX: N93.9 Abnormal uterine and vaginal bleeding, unspecified (principal); R63.4 Abnormal weight loss
CPT/HCPCS: 99213

== ENCOUNTER 2023-10-19 10:42 | Emergency (ER) | payer BC, SELFPAY ==
--- NOTE | ~2023-10-19 | US_ITS ---
EXAMINATION: US PELVIS COMPLETE TRANSVAGINAL PELVIC ULTRASOUND: CLINICAL INFORMATION: Irregular bleeding COMPARISON: 10/01/2015 TECHNIQUE: Transabdominal imaging initially performed. For more definitive evaluation of the endometrium and ovaries, transvaginal technique was employed. FINDINGS: Uterus is anteverted measuring 8.2 x 4.3 x 6.1cm. Uterine volume is 113. Uterine fibroids are identified measuring 2.1 x 1.9 x 1.9, 2.3 x 2.9 x 1.9 1.0 x 1.0 x 1.2 cm. Endometrium measures 0.8 cm. Multiple tiny calcifications identified at the periphery of the endometrium. Incidental note of nabothian cysts. Right ovary measures 2.1 x 1.5 x 1.4 cm for a volume of 2.3 mL. Previous measurement was 2.0 x 2.5 x 4 cm. 1.7 x 1.0 x 1.5 cm exophytic cyst is seen. The left ovary measures 1.1 x 1.6 x 1.7 cm for a volume of 1.6. mL. Previous measurement was 2.6 x 1.7 x 2.0 cm. 0.6 x 0.6 x 0.6 cm structure with hyperechoic rim identified within the left ovary, question corpus luteum cyst There is no pelvic free fluid. US/US pelvic and transvaginal IMPRESSION: Fibroid uterus.
[2023-10-19 11:10] VITALS: BP 154/91; PULSE 63; RESP 18; TEMP 37; O2SAT 99; BMI 31.1
--- NOTE | 2023-10-19 11:14 | ED.GENADULT ---
[facility] - General Adult General Chief complaint: Vaginal Bleeding Stated complaint: sent from urgent care Time Seen by Provider: 10/19/23 16:05 Source: patient and RN notes reviewed Mode of arrival: ambulatory Limitations: no limitations History of Present Illness [facility] narrative: This is a 43-year-old female presenting to the emergency department for evaluation of irregular vaginal bleeding for the last month. She also endorses that she has had approximately 50 lb weight loss over the last year. She also reports that she has been very stressed and is unsure if this is the cause of her weight loss. She states that she has had her menses 3 times over the course of this past month. She states that she has been irregularly bleeding for the last several days, going through multiple pads per day. She also reports that she has had unusual appearing mole on her right shoulder. Denies any headaches, dizziness, chest pain, shortness of breath, abdominal pain, diarrhea constipation. No changes in bowel habits. No other complaints or concerns at this time. MD complaint: Irregular vaginal bleeding Onset (ago): month(s) Radiation: non-radiation Relieving factors: none Exacerbating factors: none Associated symptoms: denies other symptoms Treatments prior to arrival: none Related Data Home Medications Medication Instructions Recorded Confirmed No Known Home Meds 10/19/23 10/19/23 Allergies Allergy/AdvReac Type Severity Reaction Status Date / Time morphine [MORPHINE] Allergy Unknown DIFFICULTY Verified 10/19/23 11:10 BREATHING Review of Systems Review of Systems: Yes all other systems are reviewed and are negative Constitutional: Constitutional: Reports as per [facility] Past Medical History Attestation statement: The following information was validated with the patient. Medical History Cervical ca Surgical History H/O tubal ligation History of cholecystectomy Social History Social History Alcohol intake: never Smoked in Last 30 Days: No Use of substances other than those prescribed or required for medical reasons: No Advance Directives: No Advance Directives Information Provided: Yes Patient : No Physical Exam ED Vital Signs: Vital Signs - 24 hr 10/19/23 11:10 10/19/23 15:54 Temperature 98.6 F 98.5 F Pulse Rate 63 92 Respiratory Rate 18 16 Blood Pressure 154/91 H 164/83 H Pulse Oximetry 99 100 Oxygen Delivery Method Room Air Room Air BMI result Body Mass Index 31.1 Const General: cooperative, comfortable and no acute distress Orientation/consciousness: patient oriented x3 Limitations: no limitations HENMT Head: Yes normal to inspection, Yes normocephalic and Yes atraumatic Ears: hearing grossly normal bilaterally General nose exam: Normal external nose present Face and sinus: Yes normal facial exam Mouth: Normal oral and palatal mucosa present, oropharynx normal and moist mucous membranes Throat: Yes posterior oropharynx normal Eyes General: appearance normal, both eyes and all related structures Eyelids: Yes eyelids normal Conjunctivae: conjunctivae normal Sclerae: sclerae normal Pupils: Equal, round and reactive pupils present EOM: EOMs intact bilaterally Neck Neck: Yes normal visual inspection, Yes full ROM and Yes no lymphadenopathy Lymphatic: no lymphadenopathy noted Chest Chest palpation & inspection: normal inspection of the chest Resp Effort & Inspection: normal respiratory effort and able to speak in complete sentences Auscultation: clear to auscultation bilaterally, no crackles, no rales, no rhonchi and no wheezes Cardio Rate: regular rate Rhythm: regular rhythm Heart sounds: S1 normal heart sound present and S2 normal heart sound present GI Other: Abdomen is soft, nontender, nondistended. Inspection: Yes normal to inspection Skin Other: R posterior shoulder with 2mm circular mole, regular, round, slightly raised. General skin exam: no rashes or lesions noted Trauma: no lacerations or abrasions Wounds: no wounds Neuro General: patient oriented x3 and moves all extremities Cranial nerves: Yes Equal, round and reactive pupils present Extrem General: Yes normal to inspection Right upper extremity: normal to inspection Left upper extremity: normal to inspection Right lower extremity: normal to inspection Left lower extremity: normal to inspection Course Course Course Narrative: RME- 43 old female presents for evaluation vaginal bleeding last few months a 50 lb. She was sent for urgent care. Labs and a UA. Reevaluation(s) Reevaluation #1: Ultrasound consistent with uterine fibroids. Discussed findings with patient. Recommended to follow-up with OBGYN, given doctors are be follow-up for management. Also given referral to Dermatology, and encouraged to follow-up primary care physician regarding other symptoms. Patient understands agrees with plan. Given return precautions. Patient stable for discharge. Time: 17:48 Medical Decision Making Medical Decision Making [facility] Narrative: This is a 43-year-old female presenting to the emergency department with complaints of irregular bleeding for the last month. Also endorsing 50 lb weight loss with increased stressors, and mole on her right shoulder. I evaluated patient at 4:25 p.m., blood pressure 164/83, all other vital signs within normal limits. Patient is nontoxic appearing, abdomen is soft nontender, lungs clear to auscultation bilaterally. Labs were performed on triage, stable H&H, chemistry within normal limits, urine noninfectious, patient has no urinary symptoms. Will obtain pelvic ultrasound for further evaluation. Differential Diagnosis Differential Diagnoses: The differential diagnosis associated with the presentation includes Abnormal uterine bleeding, Menopausal, uterine fibroids, Admission/Observation Consideration of admission/observation: Escalation of care including admission/observation considered Lab Data [facility] Lab Attestation statement: I reviewed the patient's lab results. 10/19/23 11:22 10/19/23 11:22 Labs: Lab Results 10/19/23 10/19/23 Range/Units 11:22 15:58 WBC 6.0 (4.8-10.8) X10*3/uL RBC 4.86 (4.20-5.50) X10*6/uL Hgb 13.8 (12.0-16.0) g/dl Hct 43.1 (37.0-47.0) % MCV 88.7 (80.0-98.0) fL MCH 28.4 (27.0-33.0) pg MCHC 32.0 (31.0-35.0) g/dl RDW 13.6 (11.0-16.0) % Plt Count 367 (160-400) X10*3/uL MPV 9.7 (9.4-12.3) fL Immature Gran % (Auto) 0.2 (0.0-0.4) % Neut % (Auto) 66.3 (45-73) % Lymph % (Auto) 22.0 (20-40) % [place] % (Auto) 9.3 (2-11) % Eos % (Auto) 1.5 (0-4) % Baso % (Auto) 0.7 (0-2) % Lymph # (Auto) 1.3 (1.2-4.9) X10*3/uL [place] # (Auto) 0.6 (0.1-1.2) X10*3/uL Eos # (Auto) 0.1 (0.0-0.4) X10*3/uL Baso # (Auto) 0.0 (0.0-0.2) X10*3/uL Abs Immat Gran (auto) 0.01 (0.00-0.03) X10*3/uL Absolute Neuts (auto) 4.0 (2.0-8.3) x10*3/uL Absolute Nucleated RBC 0.000 (0.0-0.012) X10*3/uL Nucleated RBC % (auto) 0.0 (0.0-0.2) /100WBC Sodium 143 (135-145) mmol/L Potassium 4.0 (3.3-5.1) mmol/L Chloride 111 H (96-108) mmol/L Carbon Dioxide 27 (22-29) mmol/L Anion Gap 9 L (12-20) BUN 12 (9-16) mg/dL Creatinine 0.63 (0.5-1.4) mg/dL Estim Creat Clear Calc 106.3 Estimated GFR > 60 Random Glucose 82 (60-115) mg/dL Calcium 9.6 (8.4-10.2) mg/dL Total Bilirubin 0.6 (0.0-1.0) mg/dL AST 13 (5-31) U/L ALT 8 (0-31) U/L Alkaline Phosphatase 99 (39-117) U/L Total Protein 8.0 (6.5-8.0) g/dL Albumin 4.4 (3.5-5.0) g/dL Lipase 17 (8-78) U/L TSH 0.69 (0.32-4.0) uIU/mL Beta HCG, Quant < 2 mIU/mL Urine Color Yellow Urine Appearance Cloudy Urine pH 6.0 (5.0-9.0) Ur Specific [place] 1.020 (1.005-1.025) Urine Protein Trace (Neg-Trace) mg/dL Urine Glucose (UA) Negative (Negative) mg/dL Urine Ketones 15 (Negative) mg/dL Urine Blood Large (3+) H (Negative) Urine Nitrite Negative (Negative) Ur Leukocyte Esterase Trace H (Negative) Urine RBC >20 H (0-2) /HPF Urine WBC 6-10 H (0-5) /HPF Ur Squamous Epith Cells 6-10 (0-2) /HPF Urine Bacteria Trace (None Seen) Hyaline Casts 0-2 (0-2) /LPF Radiology Impression Discussion of test interpretation with radiology: I have reviewed the radiologist's reading. External Record Review External record reviewed: Inpatient record, Office record, Outpatient record, Prior outpatient labs, Prior outpatient radiology, Primary care record and Outside ED record Discharge Plan Discharge Clinical Impression: Dysfunctional uterine bleeding, Uterine fibroid, Skin mole Patient Disposition: Home, Self-Care Instructions: Dysfunctional Uterine Bleeding (ED) Additional Instructions: You presented to the emergency department due to irregular vaginal bleeding. Your blood work was reassuring. Your not . Your pelvic ultrasound shows uterine fibroids. Please follow-up with your OBGYN regarding this visit. You may call the attached referral for follow-up. If any new or worsening symptoms occur including but not limited to chest pain, shortness breath, dizziness, worsening vaginal bleeding, cramping, pain, please return for re-evaluation. You also expressed concerns regarding a mole in your right shoulder, please follow-up with Dermatology. You may call the attached number to be seen. [facility] [phone] [place] [address] [id number] Encourage you to follow-up with your primary care physician regarding this visit. Prescriptions: No Action No Known Home Meds Referrals: Adrian Infante MD [Physician] - Interventions: ED Discharge Assessment Last Done: 10/19/23 17:53 Discharge Date/Time: 10/19/23 17:53
[2023-10-19 11:27] LABS: MANUAL DIFF FLAG NO
[2023-10-19 11:31] LABS: Basophils Percent Auto 0.7 % (0-2); Eosinophils Absolute Auto 0.1 X10*3/uL (0.0-0.4); Eosinophils Percent Auto 1.5 % (0-4); Hematocrit 43.1 % (37.0-47.0); Hemoglobin 13.8 g/dl (12.0-16.0); Imm Gran Abs Auto 0.01 X10*3/uL (0.00-0.03); Imm Gran Pct Auto 0.2 % (0.0-0.4); Lymphocytes Absolute Auto 1.3 X10*3/uL (1.2-4.9); Mean Corpuscular Hemoglobin 28.4 pg (27.0-33.0); Mean Corpuscular Volume 88.7 fL (80.0-98.0); Mean Platelet Volume 9.7 fL (9.4-12.3); Monocytes Absolute Auto 0.6 X10*3/uL (0.1-1.2); Monocytes Percent Auto 9.3 % (2-11); Neutrophils Percent Auto 66.3 % (45-73); Platelet Count 367 X10*3/uL (160-400); Red Blood Count 4.86 X10*6/uL (4.20-5.50); Red Cell Distribution Width 13.6 % (11.0-16.0)
[2023-10-19 11:53] LABS: Alanine Aminotransferase 8 U/L (0-31); Albumin Level 4.4 g/dL (3.5-5.0); Alkaline Phosphatase 99 U/L (39-117); Anion Gap 9 (12-20); Aspartate Amino Transferase 13 U/L (5-31); Bilirubin Total 0.6 mg/dL (0.0-1.0); Blood Urea Nitrogen 12 mg/dL (9-16); Calcium 9.6 mg/dL (8.4-10.2); Carbon Dioxide 27 mmol/L (22-29); Chloride 111 mmol/L (96-108); Creatinine Clr Calc Pharmacy 106.3; Estimated Glomerular Filt Rate > 60; Glucose Random 82 mg/dL (60-115); Lipase 17 U/L (8-78); Sodium 143 mmol/L (135-145)
[2023-10-19 12:03] LABS: HCG Quantitative < 2 mIU/mL
[2023-10-19 15:54] VITALS: BP 164/83; PULSE 92; RESP 16; TEMP 36.9; O2SAT 100
--- NOTE | 2023-10-19 16:00 | PC.NURSE ---
a&ox4, vss and up to date at this time. pt comes in today w/ intermittent vaginal bleeding episodes x 2 months. pt also verbalizing pelvic pain/nausea. denies any vomiting/fever/chills or any other sx at this time. pt describes bleeding as dark red/heavy. pt verbalizes last menstrual period 1.5 months ago. pt denies d/t hx of tubal ligation. no sob/wob noted. respirations even and unlabored. resting comfortably in no apparent distress. call tong placed within reach.
--- NOTE | 2023-10-19 16:06 | PC.NURSE ---
urine obtained/sent to lab.
[2023-10-19 16:11] LABS: Appearance Urine Cloudy; Color Urine Yellow; Glucose Urine UA Negative (Negative); Leukocyte Esterase Urine Trace (Negative); Nitrite Urine Negative (Negative); UMIC TRIGGER UACC YES; Urine Blood Large (3+) (Negative); Urine Ketones 15 mg/dL (Negative); Urine Protein Trace mg/dL (Neg-Trace)
[2023-10-19 16:13] LABS: Bacteria Urine Trace (None Seen); Hyaline Casts Urine 0-2 /LPF (0-2); RBC Urine >20 /HPF (0-2); UACC Culture Trigger YES
--- NOTE | 2023-10-19 16:13 | PC.NURSE ---
pt speaking w/ ED provider at this time.
--- NOTE | 2023-10-19 16:35 | PC.NURSE ---
pt going to ultrasound at this time.
[2023-10-19 17:21] LABS: Thyroid Stimulating Hormone 0.69 uIU/mL (0.32-4.0)
--- NOTE | 2023-10-19 17:40 | PC.NURSE ---
pt speaking w/ ED provider about ultrasound results at this time.
== END 2023-10-19 17:53 | disposition home or self-care (01) ==
PROVIDERS: Physician Assistant; Physician Assistant Medical; Emergency Provider Emergency Medicine
DX: D25.9 Leiomyoma of uterus, unspecified (principal); N93.8 Other specified abnormal uterine and vaginal bleeding; D22.9 Melanocytic nevi, unspecified; Z79.899 Other long term (current) drug therapy
CPT/HCPCS: 36415; 76830; 76856; 80053; 81001; 83690; 84443; 84702; 85025; 87086; 99284

== ENCOUNTER 2023-12-13 08:46 | Outpatient (REF) | payer BC, SELFPAY ==
[2023-12-13 15:22] LABS: CT PCR NOT DETECTED (Not Detect.); NG PCR NOT DETECTED (Not Detect.)
[2023-12-20 04:23] LABS: HPV mRNA E6/E7 rflx Not Detected (Not Detected)
== END 2023-12-13 08:47 | disposition home or self-care (01) ==
LOC: HO.LNP 08:46
PROVIDERS: Visit Provider Obstetrics & Gynecology
DX: Z12.4 Encounter for screening for malignant neoplasm of cervix (principal); Z11.51 Encounter for screening for human papillomavirus (HPV); N93.9 Abnormal uterine and vaginal bleeding, unspecified; Z20.2 Contact with and (suspected) exposure to infections with a predominantly sexual mode of transmission
CPT/HCPCS: 0353U; 58100; 87624; 88142; 88305

== ENCOUNTER 2023-12-13 08:46 | Outpatient (AMB) | payer BC, SELFPAY ==
[2023-12-13 09:02] VITALS: BMI 30.4
--- NOTE | 2023-12-13 09:02 | A.OFFVIS_ITS ---
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 The patient went to the emergency room 6 weeks ago and the following workup was done H&H 13.8/43.1, TSH, hCG were negative. pelvic ultrasound showed the following: Uterus is anteverted measuring 8.2 x 4.3 x 6.1cm. Uterine volume is 113. Uterine fibroids are identified measuring 2.1 x 1.9 x 1.9, 2.3 x 2.9 x 1.9 1.0 x 1.0 x 1.2 cm. Endometrium measures 0.8 cm. Multiple tiny calcifications identified at the periphery of the endometrium. Incidental note of nabothian cysts. Right ovary measures 2.1 x 1.5 x 1.4 cm for a volume of 2.3 mL. Previous measurement was 2.0 x 2.5 x 4 cm. 1.7 x 1.0 x 1.5 cm exophytic cyst is see n. The left ovary measures 1.1 x 1.6 x 1.7 cm for a volume of 1.6. mL. Previous measurement was 2.6 x 1.7 x 2.0 cm. 0.6 x 0.6 x 0.6 cm structure with hypere choic rim identified within the left ovary, question corpus luteum cyst There is no pelvic free fluid. According to patient last mammogram was at [facility] in 10/04 and was negative [facility] Medical History Cervical ca Surgical History H/O tubal ligation History of cholecystectomy Social History Alcohol intake: current Alcohol intake frequency: holidays/special occasions only Patient Tobacco Use Status: Never used Tobacco Female Reproductive History Menstrual Age of Menarche: 11 Duration of menses: 3-5 days Date of last menstrual period: 11/16/23 control method: permanent sterilization Total pregnancies: 7 Full term: 5 Number of Living Children: 5 Ab induced: 1 Ab spontaneous: 1 Review of Systems Const All systems reviewed & are unremarkable except as noted in HPI and below Physical Exam Vital Signs: BMI result Body Mass Index 30.4 General: Yes no CVA tenderness External Female Exam: normal external appearance and normal appearance of the urethra Speculum Exam - Vagina: normal appearance of the vagina, normal palpation, no lesions and no masses Speculum Exam - Cervix: normal appearance of the cervix, normal palpation, no lesions, no masses and nontender Bimanual exam- vagina & uterus: normal bimanual exam, normal palpation, uterine size normal, normal palpation, uterine shape normal, No Cervical tenderness present and non-tender Bimanual Exam- Adnexa, other: normal adnexae Back/Spine/Pelvis Back: no CVA tenderness Office Procedures Endometrial Biopsy Details: The patient was counseled regarding the indication and benefits of endometrial sampling to rule out endometrial pathology including not limited to endometrial hyperplasia or endometrial cancer and others; The alternatives (Either do nothing vs. hysteroscopy D&C) & the risks were discussed with the patient including but not limited: pain, uterine perforation, bleeding, infection, possible injury to bladder, bowel, ureter, possible need for blood transfusion with all its possible risks. The patient verbalized understanding all questions answered and signed consent. Urine test done in the office was negative The patient was placed into the dorsal lithotomy position; a speculum was inserted in the vagina. Using aseptic technique for the procedure, the cervix was cleansed with Betadine. The anterior lip of the cervix was grasped with a single tooth tenaculum. The uterus was sounded to 7 cm with a 4 mm Pipelle was used. Tissues samples were obtained and placed in formalin, in a patient labeled container and sent to the pathology department. At the end of the procedure, there was minimal bleeding noted The patient tolerated the procedure well and was discharged in good condition w ith the following instructions: Nothing in the vagina until the bleeding stops. No sex until the bleeding stops, to call if any of the following occurs: fever (>100.4), flu-like symptoms, abdominal pain, heavy bleeding, four smelling vaginal discharge. The patient was instructed to schedule a Follow up appointment in 2 weeks to discuss pathology results of the biopsy and treatment options. This note was generated with a voice recognition program. Some errors may have been overlooked during the review of this note. Sometimes these errors may affect the content or meaning of a given sentence. [id number] Biopsy Assessment & Plan Assessment & Plan (1) Abnormal uterine bleeding (AUB): Code(s): N93.9 - Abnormal uterine and vaginal bleeding, unspecified Plan: Co testing done, GC and chlamydia taken will order CBC, prolactin, HCG, and ask the patient to sign medical release for mammogram report. Discussed with the patient the different causes of abnormal bleeding including thyroid disorders, uterine and ovarian pathology, endometrial hyperplasia, carcinoma and other potential causes. Discussed with the patient the work up including CBC (to r/o anemia), TSH, pelvic Ultrasound, endometrial biopsy to r/o endometrial pathology. EMB done, see procedure note All questions answered and the patient verbalized understanding. Instructed the patient to schedule an follow-up appointment in 2 weeks. Orders: Orders Prolactin Today N93.9 - Abnormal uterine and vaginal bleeding, unspecified AMB Endometrial Biopsy Today N93.9 - Abnormal uterine and vaginal bleeding, unspecified HCG Quantitative Today N93.9 - Abnormal uterine and vaginal bleeding, unspecifie d Complete Blood Count no Diff Today N93.9 - Abnormal uterine and vaginal bleeding, unspecified Coding Level of Care Code Est Pt Level 3 (04643) Diagnoses Abnormal uterine bleeding (AUB) N93.9 CPT Codes Endometrial Biopsy - CPT: 37600-[id number] Biopsy ([id number])
== END 2023-12-13 09:54 | disposition home or self-care (01) ==
PROVIDERS: Visit Provider Obstetrics & Gynecology
DX: N93.9 Abnormal uterine and vaginal bleeding, unspecified (principal)
CPT/HCPCS: 58100; 99213

== ENCOUNTER 2023-12-13 10:08 | Outpatient (REF) | payer BC, SELFPAY ==
[2023-12-13 11:25] LABS: Hematocrit 40.9 % (37.0-47.0); Hemoglobin 13.3 g/dl (12.0-16.0); Mean Corpuscular HGB Conc 32.5 g/dl (31.0-35.0); Mean Corpuscular Hemoglobin 28.3 pg (27.0-33.0); Mean Platelet Volume 10.4 fL (9.4-12.3); Platelet Count 332 X10*3/uL (160-400); Red Cell Distribution Width 13.8 % (11.0-16.0); White Blood Count 5.4 X10*3/uL (4.8-10.8)
[2023-12-13 12:13] LABS: HCG Quantitative < 2 mIU/mL
[2023-12-14 10:28] LABS: Prolactin 5.6 ng/mL
== END 2023-12-13 10:09 | disposition home or self-care (01) ==
LOC: HO.LAB 10:08
PROVIDERS: PCP Internal Medicine; Visit Provider Obstetrics & Gynecology
DX: N93.9 Abnormal uterine and vaginal bleeding, unspecified (principal)
CPT/HCPCS: 84146; 84702; 85027

== ENCOUNTER 2024-01-15 08:07 | Outpatient (AMB) | payer BC, SELFPAY ==
[2024-01-15 08:12] VITALS: BP 128/78; BMI 30.8
--- NOTE | 2024-01-15 08:12 | A.OFFVIS_ITS ---
Intake Vital Signs 01/15/24 08:12 Height 5 ft 1 in Weight 163 lb BMI 30.8 BP 128/78 Intake Visit Reasons: EMB results Cut Order Hand Required: No Information Interpreted: non-clinical & clinical Technology Training Associate: Technology Training Associate Present Accompanied by: Self / Same As Patient Allergies morphine [MORPHINE] Allergy (Unknown, Verified 01/15/24 08:15) DIFFICULTY BREATHING Is last menstrual period known: Yes Last menstrual period: 02/14/24 Post menopausal: Yes Patient : No HPI HPI Comments History of Present Illness Details The patient is presenting for follow-up to discuss the results of her abnormal uterine bleeding workup and options of treatment. The following workup was done.: H&H= 13.3/40.9 TSH, prolactin, hCG, GC and chlamydia were negative. Endometrial biopsy pathology showed secretory endometrium with no evidence of hyperplasia and/or malignancy. Co testing was done was negative. Mammogram done at [facility] in 11/03 was BI-RADS 1. Pelvic ultrasound showed the following: Uterus is anteverted measuring 8.2 x 4.3 x 6.1cm. Uterine volume is 113. Uterine fibroids are identified measuring 2.1 x 1.9 x 1.9, 2.3 x 2.9 x 1.9 1.0 x 1.0 x 1.2 cm. Endometrium measures 0.8 cm. Multiple tiny calcifications identified at the periphery of the endometrium. Incidental note of nabothian cysts. Right ovary measures 2.1 x 1.5 x 1.4 cm for a volume of 2.3 mL. Previous measurement was 2.0 x 2.5 x 4 cm. 1.7 x 1.0 x 1.5 cm exophytic cyst is see n. The left ovary measures 1.1 x 1.6 x 1.7 cm for a volume of 1.6. mL. Previous measurement was 2.6 x 1.7 x 2.0 cm. 0.6 x 0.6 x 0.6 cm structure with hypere choic rim identified within the left ovary, question corpus luteum cyst There is no pelvic free fluid. PFSH Surgical History H/O tubal ligation History of cholecystectomy Social History Alcohol intake: current Alcohol intake frequency: holidays/special occasions only Patient Tobacco Use Status: Never used Tobacco Female Reproductive History Menstrual Age of Menarche: 11 Date of last menstrual period: 02/14/24 Review of Systems Const All systems reviewed & are unremarkable except as noted in HPI and below Reports as per HPI and Reports no additional complaints GI Reports no additional complaints Reports no additional complaints Physical Exam Vital Signs: Last Vital Signs BP 128/78 01/15/24 08:12 BMI result Body Mass Index 30.8 Assessment & Plan Assessment & Plan (1) Abnormal uterine bleeding (AUB): Comment: With myoma Code(s): N93.9 - Abnormal uterine and vaginal bleeding, unspecified Plan: Discussed with the patient the results of the workup and ultrasound and the size of the myomas. Discussed with the patient risk of myosarcoma and symptoms that are caused by myomas including but not limited to pelvic pain, pressure symptoms, abnormal uterine bleeding. In addition discussed with the patient options of treatment for myomas including: Serial ultrasounds periodically to follow-up on the size of the myoma while targeting the treatment against fibroids related symptoms ( control pills, Mirena IUD, progesterone treatment, GnRH agonist/antagonist, uterine artery embolization or endometrial ablation) versus surgical treatment including hysterectomy and /or myomectomy. All pros and cons, risks and benefits of all options were discussed with the patient. The patient understands that delay in surgical treatment in case of myosarcoma can affect her prognosis, after further discussion, the patient d ecided to think about it and get back to us. (2) Uterine fibroid: Code(s): D25.9 - Leiomyoma of uterus, unspecified Plan: Discussed with the patient the findings on pelvic ultrasound & the risk of myosarcoma; discussed with the patient the options of treatment including expectant management versus hysterectomy; the pros and cons, risks benefits of each approach were discussed with the patient including the fact that in cases of myosarcoma, surgical treatment can lead to early diagnosis and positively affects the prognosis; after further discussion, the patient decided to proceed with expectant management. Will repeat pelvic ultrasound periodically. Instructions given to patient to call in case any of the following occurs: pressure symptoms, abnormal uterine bleeding, pelvic pain; and to schedule a future office follow-up appointment for reassessment and to order a repeat ultr asound . All questions answered, the patient verbalized understanding and agreed with the plan . Coding Level of Care Code Est Pt Level 3 (75129) Diagnoses Abnormal uterine bleeding (AUB) N93.9 Uterine fibroid D25.9
== END 2024-01-15 08:29 | disposition home or self-care (01) ==
LOC: HO.HWS 08:07
PROVIDERS: PCP Internal Medicine; Visit Provider Obstetrics & Gynecology
DX: N93.9 Abnormal uterine and vaginal bleeding, unspecified (principal); D25.9 Leiomyoma of uterus, unspecified
CPT/HCPCS: 99213

== ENCOUNTER → 2024-01-15 08:07 | Outpatient (BNVA) | payer BC, SELFPAY | PROVIDERS: PCP Internal Medicine; Visit Provider Obstetrics & Gynecology ==

== ENCOUNTER 2024-03-06 07:20 | Outpatient (AMB) | payer BC, SELFPAY ==
--- NOTE | 2024-03-06 07:35 | MHC.PC.OV ---
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 Intake Note: New patient, physical request Certified Medical Technician Required: No Accompanied by: Self / Same As Patient Allergies morphine [MORPHINE] Allergy (Unknown, Verified 03/06/24 08:04) DIFFICULTY BREATHING Medication List - Last Reconciled 03/06/24 by Lucy Ignacio MD magnesium 250 mg PO DAILY Tobacco use date assessed: 03/06/24 Dental Screening Dental Screen Date: 03/06/24 Did you have a dental visit in the last 12 months?: Yes Did you have a dental problem in the last 6 months where you did not have access to dental care?: No Was dental information given to patient?: Patient has dentist HPI HPI Comments History of Present Illness Details This is a 43-year-old female that comes today to establish care. She had a physical exam 3 months ago. She complains of polyarthralgia that has been present for years and also has knee osteoarthritis evaluated by [facility] and left shoulder pain. I will send her to arthritis treatment center for this matter. Pap smear done 2023. Mammogram done recently. She also is recently and after that lost weight. She has obstructive sleep apnea and used to be in a CPAP machine but refused to use it anymore because she is not sleeping with anyone therefore snoring will not bother the other person. Has history of hives in the past that resolve on its own. She said that the hives were triggered by anxiety as per patient. She also complains of insomnia and sleep hygiene education was given. Patient refused medications. FORMERLY [facility], [facility]1983 Medical History (Updated 03/06/24 @ 09:08 by Lucy Ignacio MD) Hives Surgical History H/O tubal ligation History of cholecystectomy Family History Mother Hypertension Maternal Uncle Cancer Maternal Grandfather Cancer Family/Other Mental health disorder Substance use disorder Social History (Updated 03/06/24 @ 08:07 by Lucy Ignacio MD) Housing: Apartment Alcohol intake: current Alcohol intake frequency: holidays/special occasions only Alcohol type: other Patient Tobacco Use Status: Former Tobacco user e-Cigarette/Vaping Use: Never Used Second Hand Smoke Exposure: No service: No Current occupational status: employed Current occupational exposures/hazards: No Cognitive needs: No Hearing needs: No Vision needs: No Female Reproductive History Menstrual Age of Menarche: 11 Questionnaire PHQ-9 Over the last 2 weeks, how often have you been bothered by any of the following problems? 1. Little interest or pleasure in doing things: not at all 2. Feeling down, depressed, or hopeless: not at all 3. Trouble falling or staying asleep, or sleeping too much: not at all 4. Feeling tired or having little energy: not at all 5. Poor appetite or overeating: not at all 6. Feeling bad about yourself - or that you are a failure or have let yourself or your family down: not at all 7. Trouble concentrating on things, such as reading the newspaper or watching television: not at all 8. Moving or speaking so slowly that other people could have noticed. Or the opposite - being so fidgety or restless that you have been moving around a lot more than usual: not at all 9. Thoughts that you would be better off or of hurting yourself in some way: not at all Total score: 0 Depression Screening Interpretation: Negative Depression Screening Done: Yes 65523 - PHQ-9 Billing: Yes Source: Developed by Drs. Luigi Painting, Rupal Duke, Torsten Melo and colleagues, with an educational josy from [employer]. Thrive Questionnaire Date Thrive assessed: 03/06/24 I am a: Patient What is your living situation today?: I have a steady place to live Within the past 12 months, did the food you bought not last and you didn't have the money to get more?: Never true Within the past 12 months, did you worry whether your food would run out before you got money to buy more?: Never true Do you have trouble paying for medicines?: No Do you have trouble getting transportation to medical appointments?: No Do you have trouble paying your heating and electricity bill?: No Do you have trouble taking care of your child, family member or friend?: No Do you have trouble with day-to-day activities such as bathing, preparing meals, shopping, managing finances, etc.?: No Are you currently unemployed and looking for a job?: No Are you interested in more education?: No Please select the resources that you would like help with: None Currently or been in a relationship where the following occur: no concerns reported THRIVE Score: 0 AUDIT C Alcohol Use Questionnaire (AUDIT-C) 1. How often do you have a drink containing alcohol?: Monthly or less 2. How many drinks containing alcohol do you have on a typical day when you are drinking?: 1 or 2 3. How often do you have six or more drinks on one occasion?: Never Total Score: 1 Score Reviewed/Action Taken: No ALTA-7 AMB Questionnaire ALTA-7 Date ALTA - 7 assessed: 03/06/24 Feeling nervous, anxious, or on edge: 3 = Nearly every day Not being able to stop or control worryin = Not at all Worrying too much about different things: 0 = Not at all Trouble relaxin = Not at all Being so restless that it is hard to sit still: 0 = Not at all Becoming easily annoyed or irritable: 0 = Not at all Feeling afraid as if something awful might happen: 0 = Not at all Total ALTA-7 score (0-4 normal; 5-9 mild; 10-14 moderate; 15-21 severe): 3 Source: Developed by Drs. Luigi Painting, Rupal Duke, Torsten Melo and colleagues, with an educational josy from [employer]. ALTA-7 Assessment Billing ALTA-7 Assessment Tool: ALTA-7 Assessment 09529 Review of Systems Const All systems reviewed & are unremarkable except as noted in HPI and below Eyes Reports no additional complaints, Denies change in vision and Denies other visual disturbances Card Denies chest pain at rest, Denies chest pain with activity, Denies edema, Denies irregular heart rhythm, Denies claudication, Denies dyspnea, Denies dyspnea on exertion, Denies orthopnea, Denies paroxysmal nocturnal dyspnea and Denies slow heart rate Resp Denies cough, Denies dyspnea and Denies dyspnea on exertion Musc Reports arthralgias Psych Reports abnormal sleep pattern Physical exam (Primary Care) Vital Signs: Last Vital Signs BP 112/78 03/06/24 07:36 BMI result Body Mass Index 30.8 Tobacco/Smoking Status: Tobacco use Status Tobacco use date assessed 03/06/24 03/06/24 07:44 Patient Tobacco Use Status Former Tobacco user 03/06/24 08:07 e-Cigarette/Vaping Use Never Used 03/06/24 08:07 PHQ-9: PHQ-9 Score PHQ-9: Total score 0 03/06/24 08:12 Depression Screening Interpretation: Negative Thrive Assessment: Date of Thrive Assessment Date Thrive assessed 03/06/24 03/06/24 07:44 Currently or been in a relationship where the following occur: no concerns reported Resp Effort & Inspection: normal respiratory effort Auscultation: clear to auscultation bilaterally Cardio Jugular venous distension: no JVD Rate: regular rate Rhythm: regular rhythm Heart sounds: S1 normal heart sound present and S2 normal heart sound present Psych Affect: Anxious affect present Attitude: cooperative Thought process: Flight of ideas present Assessment and Plan Assessment & Plan (1) Knee osteoarthritis: Code(s): M17.9 - Osteoarthritis of knee, unspecified Qualifiers: Osteoarthritis type: primary Laterality: bilateral Qualified Code(s): M17.0 - Bilateral primary osteoarthritis of knee Plan: Referred to rheumatology. (2) Left shoulder pain: Code(s): M25.512 - Pain in left shoulder Qualifiers: Chronicity: chronic Qualified Code(s): M25.512 - Pain in left shoulder; G89.29 - Other chronic pain Plan: Referred to rheumatology. (3) Polyarthralgia: Code(s): M25.50 - Pain in unspecified joint Plan: Referred to rheumatology. (4) Insomnia: Code(s): G47.00 - Insomnia, unspecified Plan: Sleep hygiene education given. (5) GAY (obstructive sleep apnea): Comment: refuse CPAP. Code(s): G47.33 - Obstructive sleep apnea (adult) (pediatric) Plan: Refused sleep study. Refused to use CPAP machine. Denies daytime somnolence. Orders: Referrals Rheumatology Referral M25.50 - Pain in unspecified joint Coding Level of Care Code New Pt Level 4 (69037) Diagnoses Primary osteoarthritis of both knees M17.0 Osteoarthritis type: primary Laterality: bilateral Chronic left shoulder pain M25.512; G89.29 Chronicity: chronic Polyarthralgia M25.50 Insomnia G47.00 GAY (obstructive sleep apnea) G47.33 Additional Codes ALTA-7 Assessment Billing - ALTA-7 Assessment Tool: ALTA-7 Assessment 13847 ([id number]) Time Spent (min) 23
[2024-03-06 07:36] VITALS: BP 112/78; BMI 30.8
== END 2024-03-06 08:21 | disposition home or self-care (01) ==
PROVIDERS: PCP Internal Medicine; Visit Provider Internal Medicine
DX: M17.0 Bilateral primary osteoarthritis of knee (principal); M25.512 Pain in left shoulder; G89.29 Other chronic pain; M25.50 Pain in unspecified joint; G47.00 Insomnia, unspecified; G47.33 Obstructive sleep apnea (adult) (pediatric)
CPT/HCPCS: 99204

== ENCOUNTER 2024-09-08 08:43 | Outpatient (AMB) | payer BC, SELFPAY ==
--- NOTE | 2024-09-08 08:50 | AM.OFFWIN_ITS ---
Intake Vital Signs 09/08/24 08:54 Height 5 ft 1 in Weight 165 lb BMI 31.2 BP 108/78 Blood Pressure Location Rt brachial Position Sitting Pulse 66 Pulse Source Pulse Oximeter Pulse Oximetry (%) 100 Oxygen Delivery Method Room Air Intake Visit Reasons: EP LT eye swelling, dizzy, rt shoulder pain Intake Note: Patient here for right shoulder pain, left eye swelling that started Sunday, and dizziness that started yesterday. Patient Tobacco Use Status: Former Tobacco user Allergies morphine [MORPHINE] Allergy (Unknown, Verified 09/08/24 08:56) DIFFICULTY BREATHING Do you need a note to return to daycare/school/sports/work: Yes HPI EP LT eye swelling, dizzy, rt shoulder pain HPI Details This note is constructed using voice recognition software. While every effort has been made to ensure accuracy, brazing machine operator errors may have been included. The patient is a 44 year old female who presents to the clinic today with left eye swelling since Sunday. She notes that she tried warm compresses once swelling developed, and it seems to help the symptoms. The swelling goes down some, but it does come back when she stops the warm compresses. She denies any difficulty with vision, or pain on moving the eye. She denies any discharge from the eye. She notes that she has been working with a bar steward recently as with her appointment last Sunday for right-sided shoulder pain. She had imaging done as well as some lab work to determine contributing sources. She is using topical applications with patches, ice and heat, and they seemed to help the pain some. She notes when she was initially referred to the specialist she was with left shoulder pain, but now it seems to be on the right. The pain does radiate up into the neck area, and she finds herself massaging the muscles to try to help the pain. She also notes that she has had intermittent dizziness for the past several months. In the past she had elevated blood pressure and would get a headache with the, now she has been getting lightheadedness, dizziness, and nausea and when she checks her blood pressure with the symptoms she tends to have a lower blood pressure historically 90s over 50s. She reports that she was looking this up, and did determined that hydration could be a portion, so she has been increasing her hydration which seems to help the symptoms. She continues to keep track of her blood pressures when she is having any symptoms. She is not currently on any antihypertensive therapy. She does occasionally take magnesium , but her dosing with this does not seem to correlate with any blood pressure changes. She denies chest pain. She has been working with her primary care provider about this. [facility] Medical History (Updated 03/06/24 @ 09:08 by Lucy Ignacio MD) Hives Surgical History H/O tubal ligation History of cholecystectomy Family History Mother Hypertension Maternal Uncle Cancer Maternal Grandfather Cancer Family/Other Mental health disorder Substance use disorder Social History (Updated 03/06/24 @ 08:07 by Lucy Ignacio MD) Housing: Apartment Alcohol intake: current Alcohol intake frequency: holidays/special occasions only Alcohol type: other Patient Tobacco Use Status: Former Tobacco user e-Cigarette/Vaping Use: Never Used Second Hand Smoke Exposure: No service: No Current occupational status: employed Current occupational exposures/hazards: No Cognitive needs: No Hearing needs: No Vision needs: No Female Reproductive History Menstrual Age of Menarche: 11 Review of Systems Const All systems reviewed & are unremarkable except as noted in HPI and below Physical Exam Vital Signs: Last Vital Signs Pulse 66 09/08/24 08:54 BP 108/78 09/08/24 08:54 Pulse Ox 100 09/08/24 08:54 Oxygen Delivery Method Room Air 09/08/24 08:54 BMI result Body Mass Index 31.2 Const General: cooperative, healthy appearing, comfortable, no acute distress and well developed Orientation/consciousness: patient oriented x3 Limitations: no limitations Eyes Visual Floyd: normal visual floyd by confrontation Alignment and Position: alignment normal Eyelids: Yes eyelid abnormality (Hordeolum left upper lid) Conjunctivae: conjunctivae normal Sclerae: sclerae normal Corneas: corneas normal Pupils: Equal, round and reactive pupils present EOM: EOMs intact bilaterally Direct Ophthalmoscopy: normal light reflex, no photophobia and no papilledema Resp Effort & Inspection: normal respiratory effort and able to speak in complete sentences Neuro General: patient oriented x3 Cranial nerves: Yes Equal, round and reactive pupils present Assessment & Plan Assessment & Plan (1) Hordeolum externum left upper eyelid: Code(s): H00.014 - Hordeolum externum left upper eyelid Plan: Advised continuation of warm compresses. Advised follow up with worsening symptoms or failure to resolve. Plan See above for full details and plan. Advised continue follow with specialty in primary care for chronic concerns. Coding Level of Care Code Est Pt Level 3 (22061) Diagnoses Hordeolum externum left upper eyelid H00.014
[2024-09-08 08:54] VITALS: BP 108/78; PULSE 66; O2SAT 100; BMI 31.2
== END 2024-09-08 09:27 | disposition home or self-care (01) ==
PROVIDERS: PCP Internal Medicine; Visit Provider Registered Nurse
DX: H00.014 Hordeolum externum left upper eyelid (principal)

== ENCOUNTER → 2024-09-08 08:43 | Outpatient (BNVA) | payer BC, SELFPAY | PROVIDERS: PCP Internal Medicine; Visit Provider Registered Nurse ==

== ENCOUNTER 2024-09-11 07:57 | Outpatient (REF) | payer BC, SELFPAY ==
[2024-09-11 09:47] LABS: Free T4 (Free Thyroxine) 1.03 ng/dL (0.71-1.85); Thyroid Stimulating Hormone 1.33 uIU/mL (0.32-4.0)
== END 2024-09-11 07:58 | disposition home or self-care (01) ==
LOC: HO.LAB 07:57
PROVIDERS: PCP Internal Medicine; Visit Provider Internal Medicine
DX: R63.4 Abnormal weight loss (principal)
CPT/HCPCS: 36415; 84439; 84443

== ENCOUNTER 2024-09-12 14:52 | Outpatient (AMB) | payer BC, SELFPAY ==
--- NOTE | 2024-09-12 15:06 | MHC.OFFWIV ---
Intake Vital Signs 09/12/24 15:07 Height 5 ft 1 in Weight 164 lb BMI 31.0 BP 122/90 H Blood Pressure Location Lt brachial Position Sitting Pulse 70 Pulse Source Pulse Oximeter Pulse Oximetry (%) 94 Oxygen Delivery Method Room Air Intake Visit Reasons: EP RT shoulder pain Intake Note: Patient here for right shoulder pain that has been present for about 2 weeks. Pt states the pain is radiating up the neck. Patient Tobacco Use Status: Former Tobacco user Allergies morphine [MORPHINE] Allergy (Unknown, Verified 09/12/24 15:08) DIFFICULTY BREATHING Do you need a note to return to daycare/school/sports/work: No HPI HPI Comments History of Present Illness Details Patient is a 44-year-old female complaining of pain in her shoulder extending up into her neck. She denies any numbness tingling or weakness of the right arm or shoulder. She denies any injury to her neck. She tells me that it just feels like a heavy weight is pulling on her neck and her shoulder. She can feel a very large round, hard lump and she has been using hot water bottles on it and taking ibuprofen but it seems to be getting worse. She states she has full range of motion of her shoulder but it hurts when she moves it in certain positions. [facility] Medical History (Updated 09/12/24 @ 15:26 by Aleida Perez PA-C) Hives Surgical History H/O tubal ligation History of cholecystectomy Family History Mother Hypertension Maternal Uncle Cancer Maternal Grandfather Cancer Family/Other Mental health disorder Substance use disorder Social History (Updated 03/06/24 @ 08:07 by Lucy Ignacio MD) Housing: Apartment Alcohol intake: current Alcohol intake frequency: holidays/special occasions only Alcohol type: other Patient Tobacco Use Status: Former Tobacco user e-Cigarette/Vaping Use: Never Used Second Hand Smoke Exposure: No service: No Current occupational status: employed Current occupational exposures/hazards: No Cognitive needs: No Hearing needs: No Vision needs: No Female Reproductive History Menstrual Age of Menarche: 11 Review of Systems Const All systems reviewed & are unremarkable except as noted in HPI and below Physical Exam Vital Signs: Last Vital Signs Pulse 70 09/12/24 15:07 BP 122/90 H 09/12/24 15:07 Pulse Ox 94 09/12/24 15:07 Oxygen Delivery Method Room Air 09/12/24 15:07 BMI result Body Mass Index 31.0 Const General: cooperative, healthy appearing and comfortable Orientation/consciousness: patient oriented x3 HEENT Head: Yes normal to inspection and Yes normocephalic General nose exam: Normal external nose present Face and sinus: Yes normal facial exam Eyes General: appearance normal, both eyes and all related structures Resp Effort & Inspection: normal respiratory effort and able to speak in complete sentences Back/Spine/Pelvis Cervical Spine: normal cervical lordosis, cervical ROM normal, cervical muscular tenderness (right), pain with cervical ROM (right side), cervical spasm (right side, large spasm palpable) and No Cervical spine tenderness Thoracic/Lumbar Spine: thoracic and lumbar spine normal to inspection Neuro General: patient oriented x3 Assessment & Plan Assessment & Plan (1) Cervical paraspinal muscle spasm: Code(s): M62.838 - Other muscle spasm Plan: Recommended continuing with heat, sent cyclobenzaprine to pharmacy, advised she should start by taking one but if she needs to she could take 2 every 8 hours as needed. Can continue 600mg ibuprofen every 6 hours for the next few days. If no improvement in her pain, she should follow up with her PCP for possible physical therapy. Plan see above Medications: New cyclobenzaprine Take 1-2 tablets every 8 hours as needed for muscle spasms 5 mg PO Q8H PRN 20 tabs 0RF Muscle Spasm Coding Level of Care Code Est Pt Level 3 (52346) Diagnoses Cervical paraspinal muscle spasm M62.838
[2024-09-12 15:07] VITALS: BP 122/90; PULSE 70; O2SAT 94; BMI 31.0
== END 2024-09-12 15:52 | disposition home or self-care (01) ==
PROVIDERS: PCP Internal Medicine; Visit Provider Physician Assistant
DX: M62.838 Other muscle spasm (principal)

== ENCOUNTER → 2024-09-12 14:52 | Outpatient (BNVA) | payer BC, SELFPAY | PROVIDERS: PCP Internal Medicine; Visit Provider Physician Assistant ==

== ENCOUNTER 2025-02-05 14:42 | Outpatient (AMB) | payer BC, SELFPAY ==
--- NOTE | 2025-02-05 15:03 | A.OFFPC_ITS ---
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 Accompanied by: Self / Same As Patient Allergies morphine [MORPHINE] Allergy (Unknown, Verified 02/05/25 15:25) DIFFICULTY BREATHING Medication List - Last Reconciled 02/05/25 by Lucy Ignacio MD magnesium 250 mg PO DAILY Tobacco use date assessed: 02/05/25 Dental Screening Dental Screen Date: 03/06/24 Did you have a dental visit in the last 12 months?: Yes Did you have a dental problem in the last 6 months where you did not have access to dental care?: No Was dental information given to patient?: Patient has dentist HPI HPI Comments History of Present Illness Details The patient is a 44-year-old female presenting for her physical exam. She reports a longstanding history of joint pain originating in her 20s, which now includes both shoulders, knees, and lower back. This pain, characterized by persistent intensity and daily occurrences, significantly impacts her function and quality of life. Despite multiple evaluations, including imaging tests, a definitive diagnosis has not been made; however, fibromyalgia is a consideration. Previous evaluations ruled out conditions such as arthritis and lupus. The patient's medical history is notable for long-standing depression and anxiety, with therapy offering variable symptom control over the years. She experiences weeks of deep emotional distress followed by periods of improvement. Family history includes cases of hypertension and unspecified cancer. Allergies are significant for morphine, which causes respiratory difficulties, and she manages vitamin B12 deficiency with supplementation. - Regular Pap smear was completed last y ear. - Mammogram completed in October 2024 a [facility], results normal. - Recommendation to monitor vitamin B12 levels given the patient's history. - Discussed vitamin D and its potential role in musculoskeletal pain. - Planning for blood work to check cammy sterol, sugars, thyroid function, and vitamin levels. - Engaged in self-monitoring and health management strategies, such as regular activity and flexible exercise goals. [facility] Medical History (Updated 02/06/25 @ 08:57 by Lucy Ignacio MD) Hives Surgical History H/O tubal ligation History of cholecystectomy Family History Mother Hypertension Maternal Uncle Cancer Maternal Grandfather Cancer Family/Other Mental health disorder Substance use disorder Social History (Updated 02/05/25 @ 15:29 by Lucy Ignacio MD) Housing: Apartment Alcohol intake: current Alcohol intake frequency: holidays/special occasions only Alcohol type: hard liquor Patient Tobacco Use Status: Former Tobacco user e-Cigarette/Vaping Use: Never Used Second Hand Smoke Exposure: No service: No Current occupational status: employed Current occupational exposures/hazards: No Cognitive needs: No Hearing needs: No Vision needs: No Female Reproductive History Menstrual Age of Menarche: 11 Questionnaire PHQ-9 Over the last 2 weeks, how often have you been bothered by any of the following problems? 1. Little interest or pleasure in doing things: several days 2. Feeling down, depressed, or hopeless: several days 3. Trouble falling or staying asleep, or sleeping too much: several days 4. Feeling tired or having little energy: more than half the days 5. Poor appetite or overeating: several days 6. Feeling bad about yourself - or that you are a failure or have let yourself or your family down: several days 7. Trouble concentrating on things, such as reading the newspaper or watching television: several days 8. Moving or speaking so slowly that other people could have noticed. Or the opposite - being so fidgety or restless that you have been moving around a lot more than usual: several days 9. Thoughts that you would be better off or of hurting yourself in some way: several days Total score: 10 Depression Screening Interpretation: Positive Depression Screening Follow-up: Existing condition, Community Mental Health Worker F/U and Follow-up Visit Requested Depression Screening Done: Yes 81230 - PHQ-9 Billing: Yes Source: Developed by Drs. Luigi Painting, Rupal Duke, Torsten Melo and colleagues, with an educational josy from [employer]. Thrive Questionnaire Date Thrive assessed: 02/05/25 I am a: Patient What is your living situation today?: I have a steady place to live Within the past 12 months, did the food you bought not last and you didn't have the money to get more?: Never true Within the past 12 months, did you worry whether your food would run out before you got money to buy more?: Never true Do you have trouble paying for medicines?: No Do you have trouble getting transportation to medical appointments?: No Do you have trouble paying your heating and electricity bill?: No Do you have trouble taking care of your child, family member or friend?: No Do you have trouble with day-to-day activities such as bathing, preparing meals, shopping, managing finances, etc.?: No Are you currently unemployed and looking for a job?: No Are you interested in more education?: No Please select the resources that you would like help with: None Currently or been in a relationship where the following occur: No concerns reported THRIVE Score: 0 AUDIT C Alcohol Use Questionnaire (AUDIT-C) 1. How often do you have a drink containing alcohol?: Monthly or less 2. How many drinks containing alcohol do you have on a typical day when you are drinking?: 1 or 2 3. How often do you have six or more drinks on one occasion?: Never Total Score: 1 Score Reviewed/Action Taken: No ALTA-7 AMB Questionnaire ALTA-7 Date ALTA - 7 assessed: 02/05/25 Feeling nervous, anxious, or on edge: 1 = Several days Not being able to stop or control worryin = Several days Worrying too much about different things: 1 = Several days Trouble relaxin = Several days Being so restless that it is hard to sit still: 1 = Several days Becoming easily annoyed or irritable: 1 = Several days Feeling afraid as if something awful might happen: 1 = Several days Total ALTA-7 score (0-4 normal; 5-9 mild; 10-14 moderate; 15-21 severe): 7 Source: Developed by Drs. Luigi Painting, Rupal Duke, Torsten Melo and colleagues, with an educational josy from [employer]. ALTA-7 Assessment Billing ALTA-7 Assessment Tool: ALTA-7 Assessment 18630 Review of Systems Const All systems reviewed & are unremarkable except as noted in HPI and below Reports fatigue Card Denies chest pain at rest, Denies chest pain with activity, Denies edema, Denies irregular heart rhythm, Denies claudication, Denies dyspnea, Denies dyspnea on exertion, Denies orthopnea, Denies paroxysmal nocturnal dyspnea and Denies slow heart rate Resp Denies cough, Denies dyspnea and Denies dyspnea on exertion GI Denies abdominal pain, Denies change in bowel habits, Denies excessive flatus, Denies nausea and Denies vomiting Denies urinary incontinence, Denies urinary hesitancy and Denies urinary urgency Musc Denies abnormal gait, Denies atrophy, Denies deformity, Reports arthralgias and Denies limited range of motion Skin/Breast Denies bleeding lesions, Denies changing lesions and Denies rash Neuro Denies abnormal gait and Denies lack of coordination Endo Reports fatigue Physical exam (Primary Care) Vital Signs: Last Vital Signs BP 126/70 02/05/25 15:05 BMI result Body Mass Index 30.8 BMI Assessment/Plan discussion: High BMI High, discussed plan: lifestyle, weight reduction, dietary and physical activity Tobacco/Smoking Status: Tobacco use Status Tobacco use date assessed 02/05/25 02/05/25 15:10 Patient Tobacco Use Status Former Tobacco user 02/05/25 15:29 e-Cigarette/Vaping Use Never Used 02/05/25 15:29 PHQ-9: PHQ-9 Score PHQ-9: Total score 10 02/05/25 15:55 Depression Screening Interpretation: Positive Depression Screening Follow-up: Existing condition, Community Mental Health Worker F/U and Follow-up Visit Req uested Thrive Assessment: Date of Thrive Assessment Date Thrive assessed 02/05/25 02/05/25 15:10 Currently or been in a relationship where the following occur: No concerns re ported [facility] Head: Yes normal to inspection, Yes normocephalic and Yes atraumatic Ears: external ears normal Eyes General: appearance normal, both eyes and all related structures Eyelids: Yes eyelids normal Conjunctivae: conjunctivae normal Neck Neck: Yes normal visual inspection and Yes supple Resp Effort & Inspection: normal respiratory effort Auscultation: clear to auscultation bilaterally Cardio Jugular venous distension: no JVD Rate: regular rate Rhythm: regular rhythm Heart sounds: S1 normal heart sound present and S2 normal heart sound present GI Inspection: Yes normal to inspection Palpation (GI): Soft to palpation and nontender Auscultation: normal bowel sounds Skin General skin exam: no rashes or lesions noted Neuro General: no focal motor deficits Extrem General: Yes full ROM Psych Appearance: grossly normal Coding Level of Care Code Est Pt Level 4 (81807) Est Pt Prev Care 40-64y(89319) Diagnoses Physical exam Z00.00 Goiter E04.9 Skin lesion L98.9 Polyarthralgia M25.50 Mild major depression F32.0 ALTA (generalized anxiety disorder) F41.1 Insomnia G47.00 Additional Codes ALTA-7 Assessment Billing - ALTA-7 Assessment Tool: ALTA-7 Assessment 62816 ([id number]) PHQ-9 - 85381 - PHQ-9 Billing: Yes ([id number]) Time Spent (min) 40 Assessment & Plan Assessment & Plan (1) Physical exam: Code(s): Z00.00 - Encounter for general adult medical examination without abnormal findings Category: Medical (2) Goiter: Code(s): E04.9 - Nontoxic goiter, unspecified Category: Medical (3) Skin lesion: Code(s): L98.9 - Disorder of the skin and subcutaneous tissue, unspecified Category: Medical (4) Polyarthralgia: Code(s): M25.50 - Pain in unspecified joint Category: Medical (5) Mild major depression: Code(s): F32.0 - Major depressive disorder, single episode, mild Category: Medical (6) ALTA (generalized anxiety disorder): Code(s): F41.1 - Generalized anxiety disorder Category: Medical (7) Insomnia: Code(s): G47.00 - Insomnia, unspecified Category: Medical Plan I have recommended further evaluation of potential fibromyalgia as guided by her historical and clinical presentation. Additional blood work, including tests for rheumatological markers and vitamin levels, will be conducted. Referral to a local outbound telemarketer is planned for specialized assessment. We addressed the management of her depression and anxiety, noting the importance of ongoing therapy. Given her morphine allergy, I considered alternative analgesic options like gabapentin, advising on possible side effects and benefits. Continued monitoring of lifestyle factors and activity levels was encouraged. Patient was informed and verbally consented to the use of an ambient scribe for clinic note documentation during this visit. We extensively discussed the likelihood of fibromyalgia given her long-standing pain syndrome and negative tests for other conditions. I explained the role of further diagnostic tests and referral to rheumatology for comprehensive assessment. The risks and benefits of potential treatment options like gabapentin were clearly outlined. We concurred on revisiting her current therapy management for depression and anxiety, focusing on ensuring consistent therapy. Lifestyle modifications, including managing activity levels within comfort to improve overall health, were emphasized. I recommended follow-up once rheumatological evaluations and blood work results are available for further management planning. Orders: Orders Vitamin B12 and Folate 02/05/25 E53.8 - Deficiency of other specified B group vitamins Comprehensive [place]. Panel Fast 02/05/25 M25.50 - Pain in unspecified joint Erythrocyte Sedimentation Rate 02/05/25 M25.50 - Pain in unspecified joint Vitamin D 25-OH Total 02/05/25 E55.9 - Vitamin D deficiency, unspecified Thyroid Stimulating Hormone 02/05/25 R63.4 - Abnormal weight loss Magnesium 02/05/25 M62.838 - Other muscle spasm Cyclic Citrullinated Peptide 02/05/25 M25.50 - Pain in unspecified joint Rheumatoid Factor 02/05/25 M25.50 - Pain in unspecified joint C Reactive Protein 02/05/25 M25.50 - Pain in unspecified joint Lipid Panel 02/05/25 Z00.00 - Encounter for general adult medical examination without abnormal findings US thyroid 02/05/25 E04.9 - Nontoxic goiter, unspecified Referrals Rheumatology Referral M25.50 - Pain in unspecified joint Dermatology Referral L98.9 - Disorder of the skin and subcutaneous tissue, unspecified Patient Instructions: - Follow up with scheduled blood work to assess vitamin levels and reevaluate for any underlying conditions. - Explore a visit with the outbound telemarketer for a second opinion on the chronic pain. - Maintain regular activity levels within pain tolerances and continue with current therapy for mental health. - Be mindful of trigger points and discomfort; try lifestyle adjustments to mitigate the pain. - Contact the clinic if symptoms worsen or if new symptoms arise. - Review allergy information with all healthcare providers to avoid medications like morphine.
[2025-02-05 15:05] VITALS: BP 126/70; BMI 30.8
== END 2025-02-05 15:47 | disposition home or self-care (01) ==
LOC: HO.HMCH 14:42
PROVIDERS: PCP Internal Medicine; Visit Provider Internal Medicine
DX: Z00.00 Encounter for general adult medical examination without abnormal findings (principal); E04.9 Nontoxic goiter, unspecified; F32.0 Major depressive disorder, single episode, mild; L98.9 Disorder of the skin and subcutaneous tissue, unspecified; M25.50 Pain in unspecified joint; F41.1 Generalized anxiety disorder; G47.00 Insomnia, unspecified

== ENCOUNTER → 2025-02-05 14:42 | Outpatient (BNVA) | payer BC, SELFPAY | PROVIDERS: PCP Internal Medicine; Visit Provider Internal Medicine | DX: Z00.00 Encounter for general adult medical examination without abnormal findings (principal); E04.9 Nontoxic goiter, unspecified; L98.9 Disorder of the skin and subcutaneous tissue, unspecified; M25.50 Pain in unspecified joint; F32.0 Major depressive disorder, single episode, mild; F41.1 Generalized anxiety disorder; G47.00 Insomnia, unspecified | CPT/HCPCS: 96127 ==

== ENCOUNTER 2025-03-03 07:32 | Outpatient (REF) | payer BC, SELFPAY ==
--- NOTE | ~2025-03-03 | US_ITS ---
EXAMINATION: US THYROID CLINICAL INFORMATION: Nontoxic goiter, unspecified. COMPARISON: None available. TECHNIQUE: Linear transducer grayscale and color Doppler examination with attention to the region of the thyroid. FINDINGS: SIZE: Measurements of the thyroid lobes and nodules are given in sagittal, anteroposterior and transverse dimensions respectively. Right Thyroid Lobe: 4.4 x 1.3 x 2.0 cm, volume 6 mL. Parenchyma: The gland echotexture is normal. Thyroid vascularity is normal. Left Thyroid Lobe: 4.6 x 1.6 x 1.4 cm, volume 5.4 mL. Parenchyma: The gland echotexture is normal. Thyroid vascularity is normal. Isthmus: 0.3 cm in maximum AP dimension. Estimated total number of nodules greater than or equal to 1 cm: 2. Supervisor Drying nodules are described as follows: 1. Location: Lower pole left lobe. Size: 1.5 x 1.1 x 0.9 cm, volume 0.8 mL. Nodule characteristics: Composition: Solid/almost completely solid (2). Echogenicity: Hyperechoic (1). Shape: Taller than wide (3). Margins: Smooth (0). Echogenic Foci: Punctate echogenic foci (3). ACR TI-RADS total points: 9 ACR TI-RADS category: 5 2. Location: Right mid line Isthmus. Size: 1.2 x 0.8 x 1.0 cm, volume 0.5 mL. Nodule characteristics: Composition: Solid (2). Echogenicity: Hyperechoic (1). Shape: Not taller than wide (0). Margins: Smooth (0). Echogenic Foci: None (0). ACR TI-RADS total points: 3 ACR TI-RADS category: 3 3. Location: Right side, isthmus. Size: 0.6 x 0.4 x 0.6 cm, volume 0.09 mL. Nodule characteristics: Composition: Solid (2). Echogenicity: Hyperechoic (1). Shape: Not taller than wide (0). Margins: Ill-defined (0). Echogenic Foci: None (0). ACR TI-RADS total points: 3 ACR TI-RADS category: 3 NODES: No lymphadenopathy is seen in the tissue surrounding the thyroid gland. US/US thyroid IMPRESSION: ACR TI RADS 5, lower pole left thyroid lobe. The possibility of a parathyroid adenoma cannot be excluded ACR TI RADS 3, right-sided isthmus. ACR TI-RADS RECOMMENDATION REFERENCE: Ultrasound-guided fine-needle aspiration, followup ultrasound, no further follow up. * TR1 (0 point) and TR2 (2 points): No FNA or follow up. * TR3 (3 points): FNA if more than or equal to 2.5 cm in maximum dimension, followup ultrasound in 1, 3 and 5 years if 1.5 to 2.4 cm in maximum dimension. * TR4 (4-6 points): FNA if more than or equal to 1.5 cm in maximum dimension, followup ultrasound in 1, 2, 3 and 5 years if 1 to 1.4 cm in maximum dimension. * TR5 (more than or equal to 7 points): FNA if more than or equal to 1 cm in maximum dimension, followup ultrasound every year for 5 years if 0.5 to 0.9 cm in maximum dimension. * TR3, TR4 or TR5 nodules that are below the size threshold for followup receive no follow up. Electronically signed by: Vasquez Dennis MD 03/04/2025 12:57 PM EDT
--- OUTSIDE RECORDS SUMMARY | 2025-03-03 07:35 | XMS_ITS | Clinical Summary ---
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 CPAP HISTORICAL (HISTORICAL CPAP) Inhale into the lungs. Regional pressure 7 Active Active Problems Problem Noted Date Diagnosed Date Elevated blood pressure reading 12/04/2023 Osteoarthritis of both knees 12/04/2023 GAY (obstructive sleep apnea) 10/18/2015 Overview (10/29/2024): Last Assessment & Plan: Mrs. Gao has obstructive sleep apnea since 2016. I explained her that unfortunately I do not know why she did not receive a new machine from [facility] because the prescription is there since February 2022. I do not have any compliance report. I explained her that she will need to bring the machine or the SMS card to [facility] for us to see the compliance. In this way that will allow us to evaluate if the machine is working. If the machine is not working she may need another sleep study to see if she knew new parameters before replacing the machine. The plan is the followin. I advise to bring the machine or the SMS card to [facility] for us to review the compliance report 2. Depending of the results of the compliance report we will either order a new study or replace the machine that she is using that has already been recalled. Class 1 obesity due to exces s calories without serious comorbidity with body mass index (BMI) of 31.0 to 31.9 in adult Immunizations Name Administration Dates Next Due Hepatitis B Pediatric (Enger ix B; Recombivax HB) to less than 20 yo 05/10/2009,01/08/2009,12/10/2008 Tdap Tetanus diptheria acell ular pertussis (Boostrix; Adacel) 7yo and older 06/06/2013 Surgical History Surgery Date Site/Laterality Comments CERVICAL BIOPSY W/ LOOP ELECTRODE EXCISION 1999 PROCEDURE: HISTORICAL CONE BIOPSY; COMMENT: Mild dysplasia TUBAL LIGATION 2006 PROCEDURE: HISTORICAL TUBAL LIGATION CHOLECYSTECTOMY PROCEDURE: HISTORICAL CHOLECYSTECTOMY BX BREAST W DEVICE 1ST LESIO N ULTRASOUND GUIDE Left benign Medical History Medical History Date Comments Other specified personal his tory presenting hazards to health(V15.89) DX:Other specifie d personal history presenting hazards to health(V15.89); COMMENT: cryo surgery 1999 GAY (obstructive sleep apnea) 10/18/2015 DX :GAY (obstructive sleep apnea) Giant hives 02/14/2011 DX:Giant hives Pain, abdominal 10/18/2015 DX:Pain, abdomin al Knee pain 12/22/2016 DX:Knee pain; CO MMENT: See 2014 note with rheumatology Class 2 obesity 05/30/2018 DX:Class 2 obesi ty Postprandial abdominal bloating 11/01/2018 DX:Postprandial abdominal bloating Class 2 obesity 05/30/2018 DX:Class 2 obesi ty Pain, abdominal 10/18/2015 DX:Pain, abdomin al Postprandial abdominal bloating 11/01/2018 DX:Postprandial abdominal bloating Urinary incontinence, mixed 01/18/2023 DX:U rinary incontinence, mixed Mittelschmerz 01/18/2023 DX:Mittelschmerz Anxiety and depression 09/11/2019 DX:Anxiet y and depression Dermatitis 08/04/2018 DX:Dermatitis; C OMMENT: [facility] 08/02/18 Family history of ovarian cancer 09/11/2019 DX:Family history of ovarian cancer Family history of colon cancer 09/11/2019 D X:Family history of colon cancer Family History Medical History Relation Name Comments Hypertension Aunt 1 Maternal Ovarian cancer Aunt 2 maternal + cousins wit h ovarian ca, in 30s No Known Problems Father Colon cancer Maternal Grandfather Hypertension Mother Stomach cancer Mother's side Uncle Arthritis Other aunts and cousi n (latter ?rheumatoid arthritis) No Known Problems Sister No Known Problems Son 1 No Known Problems Son 2 No Known Problems Son 3 No Known Problems Son 4 No Known Problems Son 5 Breast cancer Neg Hx Relation Name Status Comments Aunt 1 Alive Aunt 2 maternal Brother Father Alive Maternal Grandfather Maternal Grandmother Mother Alive Mother's side Other Sister Alive Son 1 Alive Son 2 Alive Son 3 Alive Son 4 Alive Son 5 Alive Social History Tobacco Use Types Packs/Day Years Used Date Smoking Tobacco: Former Cigarettes 0.5 20 0 1995 - 07/03/2015 Smokeless Tobacco: Never Alcohol Use Standard Drinks/Week Comments Yes 0 (1 standard drink = 0.6 oz pur e alcohol) Comments No Sex and Gender Information Value Date Recorded Sex Assigned at Not on file Legal Sex Female 12:50 PM EST Gender Identity Not on file Sexual Orientation Not on file Obstetrics History Para Term AB IAB SAB Ectopic Multiple Livin g Live Births 4 4 4 4 Date Outcome GA Total Labor Labor/2nd/3rd Weight Sex Type Anes PTL Jeanie A1 A5 Name Clin Term Term Term Term Last Filed Vital Signs Vital Sign Reading Time Taken Comments Blood Pressure 132/80 12/04/2023 1:59 PM EST Pulse 69 12/04/2023 1:59 PM EST Temperature - - Respiratory Rate - - Oxygen Saturation - - Inhaled Oxygen Concentration - - Weight 75.3 kg (166 lb) 12/04/2023 1:59 PM EST Height 154.9 cm (5' 1 ) 12/04/2023 1:59 PM EST Body Mass Index 31.37 12/04/2023 1:59 PM EST Plan of Treatment Health Maintenance Due Date Last Done Comments Hepatitis B Vaccines (1 of 3 - 19+ 3-dose series) 1999 05/10/2009, 01/08/2009, 12/10/2008 HIV Screening 10/21/2022 Hepatitis C Screening 10/21/2022 Social Influencers of Health Screening 10/21/2022 DTaP,Tdap,and Td Vaccines (2 - Td or Tdap) 06/06/2023 06/06/2013 COVID-19 Vaccine (1 - 2024-25 season) 2024 Depression Screening 12/04/2024 12/04/2023 Cervical Cancer Screening: HPV 05/06/2025 05/06/2020 Influenza Vaccine (Season Ended) 2025 Breast Cancer Screening 11/20/2026 11/20/19, 11/08/2024, 10/29/2023, Additional history exists Cholesterol Screening (Lipid Panel) 12/06/2028 12/06/2023 HIB Vaccines Aged Out No longer eligi ble based on patient's age to complete this topic HPV Vaccines Aged Out No longer eligi ble based on patient's age to complete this topic Hepatitis A Vaccines Aged Out No long er eligible based on patient's age to complete this topic IPV Vaccines Aged Out No longer eligi ble based on patient's age to complete this topic MMR Vaccines Aged Out No longer eligi ble based on patient's age to complete this topic Meningococcal ACWY Vaccine Aged Out N o longer eligible based on patient's age to complete this topic Meningococcal B Vaccine Aged Out No l onger eligible based on patient's age to complete this topic Pneumococcal Vaccine: Pediatrics (0 to 5 Years) and At-Risk Patients (6 to 64 Years) Aged Out No longer eligible based on patient's age to complete this topic RSV Immunization Patients Under 20 months Aged Out No longer eligible based on patient's age to complete this topic Varicella Vaccines Aged Out No longer eligible based on patient's age to complete this topic Procedures Procedure Name Priority Date/Time Associated Diagnosis Comments MG MAMMO DIGITAL DIAGNOSTIC W AKI LEFT Routine 11/20/2024 3:15 PM EST Abnormal mammogram LIPID PANEL Routine 12/06/2023 HM DEPRESSION SCREENING Routine 12/04/2023 HM HPV Routine 05/06/2020 from Last 3 Months or Most Recently Relevant to Health Maintenance Results * MG Mammo Digital Diagnostic w Aki Left (11/20/2024 3:15 PM EST) Anatomical Region Laterality Modality Breast Left Mammography 11/20/2024 4:11 PM EST Impressions 11/20/2024 4:21 PM EST LEFT BREAST: Simple cyst at 9 o'clock position. ??Benign, no evidence of malignancy. Normal interval follow-up is recommended in 12 months. Findings and recommendations were discussed with the patient. ?? BREAST DENSITY: C - The breasts are heterogeneously dense which may obscure small masses. ?? BI-RADS CATEGORY: 2 - BENIGN RECOMMENDATION: Mammography: Screening bilateral mammogram is recommended in 1 year. Ultrasound: Screening bilateral mammogram is recommended in 1 year. Mammo Location: [facility], [address] [place] [address], [id number], . -------- FINAL REPORT -------- Dictated By: Melly Castro Dictated Date: 11/20/2024 16:11 ET Assigned Physician: Melly Castro Reviewed and Electronically Signed By: Melly Castro Signed Date: 11/20/2024 16:21 ET Workstation ID: [id number] Transcribed By: Self Edit Transcribed Date: 11/20/2024 16:21 ET Narrative 11/20/2024 4:21 PM EST HISTORY: Callback from screening for 2 left breast findings: -Mass in the lower inner quadrant approximately 6 to 7 cm from the nipple. -Asymmetry in the central breast on the MLO view along the retroareolar plane STUDIES: 1. Unilateral left diagnostic mammography with tomosynthesis and CAD 2. ??Targeted ultrasound of the left breast TECHNIQUE: Unilateral left digital diagnostic mammography is obtained and read in conjunction with computer-aided detection. ??Tomosynthesis as well as 2-D C view imaging were obtained. Spot compression Tomosynthesis images were also obtained. COMPARISON: Comparison made to multiple prior, most recent November 08, 2024, and most remote September 24, 2021. LEFT BREAST: -Asymmetry in the central breast on the MLO view is pliable with spot compression; local parenchyma on today's images appears similar to multiple prior studies as far back as 2020. ??Findings likely represented overlapping fibroglandular breast tissue. -0.4 cm mass in the lower inner quadrant at about 5 to 6 cm from the nipple is better seen on the ML 90 degrees 31/50, spot MLO 30/55 and spot CC 21/45. ??Targeted ultrasound of the left breast was performed to location of the mammographic finding. ??The survey shows a 0.4 x 0.4 x 0.3 cm simple cyst at 9 o'clock position 7 cm from the nipple. ??No internal vascularity demonstrated with color Doppler evaluation. Procedure Note Melly Castro MD - 11/20/2024 HISTORY: Callback from screening for 2 left breast findings: -Mass in the lower inner quadrant approximately 6 to 7 cm from thenipple. -Asymmetry in the central breast on the MLO view along the retroareolarplane STUDIES: 1. Unilateral left diagnostic mammography with tomosynthesis and CAD 2. Targeted ultrasound of the left breast TECHNIQUE: Unilateral left digital diagnostic mammography is obtained andread in conjunction with computer-aided detection. Tomosynthesis as wellas 2-D C view imaging were obtained. Spot compression Tomosynthesis imageswere also obtained. COMPARISON: Comparison made to multiple prior, most recent October, and most remote September 24, 2021. LEFT BREAST: -Asymmetry in the central breast on the MLO view is pliable with spotcompression; local parenchyma on today's images appears similar tomultiple prior studies as far back as 2020. Findings likely representedoverlapping fibroglandular breast tissue. -0.4 cm mass in the lower inner quadrant at about 5 to 6 cm from thenipple is better seen on the ML 90 degrees 31/50, spot MLO 30/55 and spotCC 21/45. Targeted ultrasound of the left breast was performed tolocation of the mammographic finding. The survey shows a 0.4 x 0.4 x 0.3cm simple cyst at 9 o'clock position 7 cm from the nipple. No internalvascularity demonstrated with color Doppler evaluation. IMPRESSION: LEFT BREAST: Simple cyst at 9 o'clock position. Benign, no evidence ofmalignancy. Normal interval follow-up is recommended in 12 months. Findings and recommendations were discussed with the patient. BREAST DENSITY: C - The breasts are heterogeneously dense which mayobscure small masses. BI-RADS CATEGORY: 2 - BENIGN RECOMMENDATION: Mammography: Screening bilateral mammogram is recommended in 1 year. Ultrasound: Screening bilateral mammogram is recommended in 1 year. Mammo Location: [facility], [address] [place] [address], [id number], . -------- FINAL REPORT -------- Dictated By: Melly Castro Dictated Date: 11/20/2024 16:11 ET Assigned Physician: Melly Castro Reviewed and Electronically Signed By: Melly Castro Signed Date: 11/20/2024 16:21 ET Workstation ID: [id number] Transcribed By: Self Edit Transcribed Date: 11/20/2024 16:21 ET Sunny Jessica MD IMG BI PROCEDURES Final Res ult * Lipid panel (12/06/2023) LDL/HDL Ratio 3 0 - 4 Triglycerides 62 0 - 150 mg/dL Cholesterol 165 0 - 200 mg/dL HDL 58 >=40 mg/dL LDL Cholesterol 95 0 - 100 mg/dL Blood Venous blood specimen / Unknown Historical Provider LAB BLOOD ORDERABLES Mayda l Result * Depression Screening (12/04/2023) Pathologist [facility] Depression Screening Abstracted Historical Provider HEALTH MAINTENANCE Final Result * Cervical Cancer Screening: HPV (05/06/2020) Pathologist [facility] Cervical Cancer Screening: HPV Negative, Abstracted Historical Provider HEALTH MAINTENANCE Final Result from Last 3 Months or Most Recently Relevant to Health Maintenance Insurance [facility] Care Teams 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
[2025-03-03 09:56] LABS: Erythrocyte Sedimentation Rate 16 MM/HR (0-20)
[2025-03-03 10:05] LABS: Alanine Aminotransferase 9 U/L (0-31); Alkaline Phosphatase 99 U/L (39-117); Anion Gap 11 (12-20); Aspartate Amino Transferase 18 U/L (5-31); Bilirubin Total 0.5 mg/dL (0.0-1.0); Blood Urea Nitrogen 13 mg/dL (9-16); C Reactive Protein 0.25 mg/dL (< or = 0.50); Calcium 9.2 mg/dL (8.4-10.2); Carbon Dioxide 25 mmol/L (22-29); Chloride 109 mmol/L (96-108); Cholesterol 156 mg/dL (<200); Estimated Glomerular Filt Rate > 60; Glucose Fasting 82 mg/dL (60-99); HDL Cholesterol 61 mg/dL (>40); LDL Cholesterol Calculated 86 mg/dL (<100); Magnesium 2.1 mg/dL (1.6-2.6); Sodium 141 mmol/L (135-145); Thyroid Stimulating Hormone 1.59 uIU/mL (0.32-4.0); Triglycerides 48 mg/dL (<150); Vitamin D 25-OH Total 10.3 ng/mL (>30)
[2025-03-03 10:13] LABS: Rheumatoid Factor 13.6 IU/mL (<15.0)
[2025-03-03 10:24] LABS: Folate 5.6 ng/mL (> or = 4.0); Vitamin B12 380 pg/mL (200-900)
[2025-03-05 19:39] LABS: Cyclic Citrullinated Peptide 199 UNITS
== END 2025-03-03 07:33 | disposition home or self-care (01) ==
LOC: HO.US 07:32
PROVIDERS: PCP Internal Medicine; Visit Provider Internal Medicine
DX: Z00.00 Encounter for general adult medical examination without abnormal findings (principal); Z13.6 Encounter for screening for cardiovascular disorders; M25.50 Pain in unspecified joint; R63.4 Abnormal weight loss; E53.8 Deficiency of other specified B group vitamins; E55.9 Vitamin D deficiency, unspecified; M62.838 Other muscle spasm; E04.9 Nontoxic goiter, unspecified
CPT/HCPCS: 36415; 76536; 80053; 80061; 82306; 82607; 82746; 83735; 84443; 85652; 86140; 86200; 86431

== ENCOUNTER → 2025-03-03 14:21 | Outpatient (BNV) | payer BC, SELFPAY | PROVIDERS: PCP Internal Medicine; Visit Provider Radiology Diagnostic Radiology | DX: E04.9 Nontoxic goiter, unspecified (principal) | CPT/HCPCS: 76536 ==

== ENCOUNTER 2025-03-16 15:14 | Outpatient (AMB) | payer BC, SELFPAY ==
[2025-03-16 15:16] VITALS: BP 116/70; BMI 32.2
--- NOTE | 2025-03-16 15:16 | A.OFFVIS_ITS ---
Vital Signs 03/16/25 15:16 Height 5 ft 1 in Weight 170 lb 10.205 oz BMI 32.2 BP 116/70 Blood Pressure Location Lt brachial Position Sitting Intake Visit Reasons: Nontoxic single thyroid nodule Intake Note: Patient present today for Nontoxic single thyroid nodule. Psychology Physician Required: No Accompanied by: Self / Same As Patient Allergies morphine [MORPHINE] Allergy (Unknown, Verified 03/16/25 15:20) DIFFICULTY BREATHING Medication List - Last Reconciled 03/16/25 by Sammi Leal MD cholecalciferol (vitamin D3) 50 mcg PO DAILY 90 days magnesium 250 mg PO DAILY nabumetone 750 mg PO BID PRN 30 days HPI Comments Details: 44-year-old female coming in today for initial evaluation of multinodular goiter. Ultrasound of the thyroid done 03/03/2025: I reviewed the images myself which show a left lower pole 1.5 cm solid hyperechoic taller than wide thyroid nodule, per the report this also has punctate echogenic foci, TR 5 category meets criteria for biopsy. Another isthmus 1.2 cm solid isoechoic nodule noted, holland hao this seems to have extrathyroidal extension per my assessment and also needs a biopsy. I would classify this as TR 5 category even though this is labeled as TR 3. Another subcentimeter right isthmus TR 3 category nodule noted. Patient currently denies heat or cold intolerance, diarrhea or constipation, hair loss, palpitation, anxiety,, mood changes, changes in appearance of eyes or vision changes, tremors, increased diaphoresis or dry skin Lost 30 lbs in the past 3 years or so . ?Some low energy because of pain. Patient denies any difficulty swallowing, pain on swallowing or voice changes or difficulty breathing. Patient denies any history of childhood neck radiation. Denies having ever used lithium, amiodarone or biotin supplements. Patient denies any family history of thyroid cancer or thyroid disease. Physical exam General: sitting comfortably in no acute distress HEENT: normocephalic/atraumatic Neck: supple, palpable 1 cm isthmus nodule Cardiac: normal heart sounds Pulm: normal breath sounds B/L, no added breath sounds Abd: not distended, no tenderness Extremities: no edema, no signs of myxedema Laboratory Tests 03/03/25 07:51 TSH 1.59 US THYROID 4/22/25 CLINICAL INFORMATION: Nontoxic goiter, unspecified. COMPARISON: None available. TECHNIQUE: Linear transducer grayscale and color Doppler examination with attention to the region of the thyroid. FINDINGS: SIZE: Measurements of the thyroid lobes and nodules are given in sagittal, anteroposterior and transverse dimensions respectively. Right Thyroid Lobe: 4.4 x 1.3 x 2.0 cm, volume 6 mL. Parenchyma: The gland echotexture is normal. Thyroid vascularity is normal. Left Thyroid Lobe: 4.6 x 1.6 x 1.4 cm, volume 5.4 mL. Parenchyma: The gland echotexture is normal. Thyroid vascularity is normal. Isthmus: 0.3 cm in maximum AP dimension. Estimated total number of nodules greater than or equal to 1 cm: 2. Make Up Operator Helper nodules are described as follows: 1. Location: Lower pole left lobe. Size: 1.5 x 1.1 x 0.9 cm, volume 0.8 mL. Nodule characteristics: Composition: Solid/almost completely solid (2). Echogenicity: Hyperechoic (1). Shape: Taller than wide (3). Margins: Smooth (0). Echogenic Foci: Punctate echogenic foci (3). ACR TI-RADS total points: 9 ACR TI-RADS category: 5 2. Location: Right mid line Isthmus. Size: 1.2 x 0.8 x 1.0 cm, volume 0.5 mL. Nodule characteristics: Composition: Solid (2). Echogenicity: Hyperechoic (1). Shape: Not taller than wide (0). Margins: Smooth (0). Echogenic Foci: None (0). ACR TI-RADS total points: 3 ACR TI-RADS category: 3 3. Location: Right side, isthmus. Size: 0.6 x 0.4 x 0.6 cm, volume 0.09 mL. Nodule characteristics: Composition: Solid (2). Echogenicity: Hyperechoic (1). Shape: Not taller than wide (0). Margins: Ill-defined (0). Echogenic Foci: None (0). ACR TI-RADS total points: 3 ACR TI-RADS category: 3 NODES: No lymphadenopathy is seen in the tissue surrounding the thyroid gland. US/US thyroid IMPRESSION: ACR TI RADS 5, lower pole left thyroid lobe. The possibility of a parathyroid adenoma cannot be excluded ACR TI RADS 3, right-sided isthmus. PFSH Medical History Hives Surgical History H/O tubal ligation History of cholecystectomy Family History Mother Hypertension Maternal Uncle Cancer Maternal Grandfather Cancer Family/Other Mental health disorder Substance use disorder Social History (Updated 02/05/25 @ 15:29 by Lucy Ignacio MD) Housing: Apartment Alcohol intake: current Alcohol intake frequency: holidays/special occasions only Alcohol type: hard liquor Patient Tobacco Use Status: Former Tobacco user e-Cigarette/Vaping Use: Never Used Second Hand Smoke Exposure: No service: No Current occupational status: employed Current occupational exposures/hazards: No Cognitive needs: No Hearing needs: No Vision needs: No Female Reproductive History Menstrual Age of Menarche: 11 Physical Exam Vital Signs: Last Vital Signs BP 116/70 03/16/25 15:16 BMI result Body Mass Index 32.2 Assessment & Plan Assessment & Plan (1) Multinodular goiter: Code(s): E04.2 - Nontoxic multinodular goiter Category: Medical Plan: 44-year-old female coming in today for initial evaluation of multinodular goiter. Ultrasound of the thyroid done 03/03/2025: I reviewed the images myself which show a left lower pole 1.5 cm solid hyperechoic taller than wide thyroid nodule, per the report this also has punctate echogenic foci, TR 5 category meets criteria for biopsy. Another isthmus 1.2 cm solid isoechoic nodule noted, however this seems to have extrathyroidal extension per my assessment and also needs a biopsy. I would classify this as TR 5 category even though this is labeled as TR 3. Another subcentimeter right isthmus TR 3 category nodule noted. I explained that it is common to have thyroid nodules. About 95% of the time these nodules are benign. However if the nodule is > 1 cm in size or suspicious on ultrasound then a fine need aspiration biopsy is recommended. We discussed that a FNAB involves 4-5 passes with a small gauge needle and material obtained is sent off for cytology.If the cytopathology is benign then the nodule will be followed annually with repeat ultrasounds. However if it is suspicious or malignant, we will need to discuss further management. Indeterminate cytology can be further investigated with repeat FNA, genetic testing or empiric lobectomy. Malignant cytology is managed with either lobectomy or total thyroidectomy. We discussed briefly that thyroid cancer is, in most patients, an indolent disease that does not affect mortality. We will arrange for FNA of the left lower pole 1.5 cm and the isthmus 1.2 cm nodule at next available opening and patient will follow up with me in clinic thereafter for results and further decision making. No compressive symptoms, normal TSH from February 2025. Plan: -scheduled for left lower pole 1.5 cm and isthmus 1.2 cm thyroid nodule biopsies and a follow up 2 weeks after to discuss results Plan I spent 40 minutes in reviewing the record, seeing the patient and documenting in the medical record. Orders: Orders US biopsy thyroid Today E04.2 - Nontoxic multinodular goiter Patient Instructions: We will bring you in for a biopsy of your left and middle thyroid nodule and a follow up 2 wks after to discuss results Coding Level of Care Code New Pt Level 4 (70648) Diagnoses Multinodular goiter E04.2 Time Spent (min) 45
--- OUTSIDE RECORDS SUMMARY | 2025-03-16 16:50 | XMS_ITS | Clinical Summary ---
Author Organization [facility] 444 [facility] Address [address] [place] [phone] Phone Care Team Providers Care Regulatory Law Specialist Name Role Phone Sunny Jessica MD Primary Care Provider [phone]- [phone] Allergies Active Allergy Reactions Criticality Noted Date [...] Mrs. Gao has obstructive sleep apnea since 2015. I explained her that unfortunately I do not know why she did not receive a new machine from [facility] because the prescription is there since February 2022. I do not have any compliance report. I explained her that she will need to bring the machine or the SMS card to [facility] for us to see the compliance. In this way that will allow us to evaluate if the machine is working. If the machine is not working she may need another sleep study to see if she knew new parameters before replacing the machine. The plan is the followin. I advise to bring the machine or the SMS card to [facility] for us to review the compliance report [...] and depression Dermatitis 08/04/2018 DX:Dermatitis; C OMMENT: [facility] ER 08/02/18 Family history of ovarian cancer [...] is recommended in 1 year. Mammo Location: [facility], [address] [place] [address], [id number], . -------- FINAL REPORT -------- Dictated By: Melly Castro Dictated Date: 11/20/2024 16:11 ET Assigned Physician: Melly Castro Reviewed and Electronically Signed By: Melly Castro Signed Date: 11/20/2024 16:21 ET Workstation ID: [id number] Transcribed By: Self Edit Transcribed Date: 11/20/2024 [...] is recommended in 1 year. Mammo Location: [facility], [address] [place] [address], [id number], . -------- FINAL REPORT -------- Dictated By: Melly Castro Dictated Date: 11/20/2024 16:11 ET Assigned Physician: Melly Castro Reviewed and Electronically Signed By: Melly Castro Signed Date: 11/20/2024 16:21 ET Workstation ID: [id number] Transcribed By: Self Edit Transcribed Date: 11/20/2024 [...] l Result * Depression Screening (12/04/2023) Pathologist [facility] Depression Screening Abstracted Historical Provider HEALTH MAINTENANCE Final Result * Cervical Cancer Screening: HPV (05/06/2020) Pathologist [facility] Cervical Cancer Screening: HPV Negative, Abstracted Historical Provider HEALTH MAINTENANCE Final Result from Last 3 Months or Most Recently Relevant to Health Maintenance Insurance [facility] Care Teams Regulatory Law Specialist Relationship Specialty Start Date End Date Sunny Jessica MD [address] [place] [address] PCP - General Internal Medicine 09/01/22
== END 2025-03-16 15:55 | disposition home or self-care (01) ==
LOC: HO.ENCR 15:15
PROVIDERS: PCP Internal Medicine; Visit Provider Student in an Organized Health Care Education/Training Program
DX: E04.2 Nontoxic multinodular goiter (principal)
CPT/HCPCS: 99204

== ENCOUNTER 2025-03-18 08:36 | Outpatient (REF) | payer BC, SELFPAY ==
--- OUTSIDE RECORDS SUMMARY | 2025-03-18 08:53 | XMS_ITS | Clinical Summary ---
Author Organization [facility] 444 [facility] Address [address] [place] [phone] Phone Care Team Providers Care Land Examiner Name Role Phone Sunny Jessica MD Primary Care Provider [phone]- [phone] Allergies Active Allergy Reactions Criticality Noted Date [...] did not receive a new machine from [facility] because the prescription is there since February 2022. I do not have any compliance report. I explained her that she will need to bring the machine or the SMS card to [facility] for us to see the compliance. In this way that will allow us to evaluate if the machine is working. If the machine is not working she may need another sleep study to see if she knew new parameters before replacing the machine. The plan is the followin. I advise to bring the machine or the SMS card to [facility] for us to review the compliance [...] and depression Dermatitis 08/04/2018 DX:Dermatitis; C OMMENT: [facility] ER 08/02/18 Family history of ovarian cancer [...] is recommended in 1 year. Mammo Location: [facility], [address] [place] [address], [address], . -------- FINAL REPORT -------- Dictated By: Melly Castro Dictated Date: 11/20/2024 16:11 ET Assigned Physician: Melly Castro Reviewed and Electronically Signed By: Melly Castro Signed Date: 11/20/2024 16:21 ET Workstation ID: [id number] Transcribed By: Self Edit Transcribed Date: 11/20/2024 [...] is recommended in 1 year. Mammo Location: [facility], [address] [place] [address], [address], . -------- FINAL REPORT -------- Dictated By: Melly Castro Dictated Date: 11/20/2024 16:11 ET Assigned Physician: Melly Castro Reviewed and Electronically Signed By: Melly Castro Signed Date: 11/20/2024 16:21 ET Workstation ID: [id number] Transcribed By: Self Edit Transcribed Date: 11/20/2024 [...] * Depression Screening (12/04/2023) Pathologist [facility] Depression Screening Abstracted Historical Provider HEALTH MAINTENANCE Final Result * Cervical Cancer Screening: HPV (05/06/2020) Pathologist [facility] Cervical Cancer Screening: HPV Negative, Abstracted Historical Provider HEALTH MAINTENANCE Final Result from Last 3 Months or Most Recently Relevant to Health Maintenance Insurance [facility] Care Teams Land Examiner Relationship Specialty Start Date End Date Sunny Jessica MD [address] [place] [address] PCP - General Internal Medicine 09/01/22
--- NOTE | 2025-03-18 09:26 | PCN2_ITS ---
Brief Operative Note Date of procedure: 03/18/25 Pre-op diagnosis: left inferior 1.5 cm and isthmus 1.2 cm thyroid nodule FNA b iopsy Post-op diagnosis: same Procedure: THYROID FINE NEEDLE ASPIRATION PROCEDURE NOTE ? PROCEDURE PERFORMED: Ultrasound-guided FNA of thyroid nodule ? OPERATORS: Dr. Sammi Leal ? INDICATION: left inferior 1.5 cm and isthmus 1.2 cm thyroid nodules ; FNA performed to assess for malignancy ? DESCRIPTION OF PROCEDURE: The indications for FNA (to assess for malignancy) were reviewed with the patient in detail. Potential complications (e.g., bleeding, infection, damage to local structures, absence of clear diagnosis after FNA) were reviewed. Alternatives to FNA including conservative observation or surgery were described. The patient understood and agreed to proceed. This was documented by the signing of the written informed consent form. A time-out was performed to confirm the patient's identity and the site of planned FNA. The nodules of interest were identified using ultrasound (14 MHz linear array probe). The sites of FNA was then draped in the usual fashion and carefully cleaned and prepared using alcohol swabs. The skin at the previously-identified sites of needle insertion was iced and sprayed with numbing spray. First for the left inferior 1.5 cm thyroid nodule , Under ultrasound guidance, _4_ passes were performed using a 1.5-inch, 25-gauge needle, and sample was obtained via capillary action. The needle tip was clearly visualized to be within the nodule at the time of sampling for _2_ of 4__ passes Then for the isthmus 1.2 cm thyroid nodule , Under ultrasound guidance, _4_ passes were performed using a 1.5-inch, 25-gauge needle, and sample was obtained via capillary action. The needle tip was clearly visualized to be within the nodule at the time of sampling for _4_ of 4__ passes The patient tolerated the procedure well. There were no immediate complications. A small adhesive bandage was applied, and the patient was advised to take acetaminophen (rather than NSAIDs) for any discomfort and to report any signs of inflammation/infection or marked swelling. IMPRESSION: Technically successful ultrasound-guided fine needle aspiration of left inferior 1.5 cm and isthmus 1.2 cm thyroid nodules. PLAN: The patient was advised that I will provide follow-up regarding the cytology result and any subsequent plans. Sammi Leal MD Endocrinology Attending Condition: stable Disposition: same day
== END 2025-03-18 08:37 | disposition home or self-care (01) ==
LOC: HO.US 08:36
PROVIDERS: PCP Internal Medicine; Visit Provider Student in an Organized Health Care Education/Training Program
DX: E04.2 Nontoxic multinodular goiter (principal)
CPT/HCPCS: 10005; 10006; 88173; 88305

== ENCOUNTER → 2025-03-18 08:36 | Outpatient (BNV) | payer BC, SELFPAY | PROVIDERS: PCP Internal Medicine; Visit Provider Student in an Organized Health Care Education/Training Program | DX: E04.2 Nontoxic multinodular goiter (principal) | CPT/HCPCS: 10005; 10006 ==

== ENCOUNTER 2025-04-01 12:19 | Outpatient (AMB) | payer BC, SELFPAY ==
[2025-04-01 12:31] VITALS: BP 134/76; PULSE 65; BMI 31.7
--- NOTE | 2025-04-01 12:31 | A.OFFVIS_ITS ---
Vital Signs 3 04/01/25 12:31 Height 5 ft 1 in Weight 167 lb 15.876 oz BMI 31.7 BP 134/76 Blood Pressure Location Lt brachial Position Sitting Pulse 65 Pulse Source Pulse Oximeter Intake Visit Reasons: Biopsy f/u Intake Note: Patient present today for biopsy results. Homebirth Midwife Required: No Accompanied by: Friend Allergies morphine [MORPHINE] Allergy (Unknown, Verified 04/01/25 12:36) DIFFICULTY BREATHING Medication List - Last Reconciled 04/01/25 by Sammi Leal MD cholecalciferol (vitamin D3) 50 mcg PO DAILY 90 days magnesium 250 mg PO DAILY nabumetone 750 mg PO BID PRN 30 days HPI Comments Details: 44-year-old female coming in today for follow up of nontoxic multinodular goiter. HPI Ultrasound of the thyroid done 03/03/2025: I reviewed the images myself which show a left lower pole 1.5 cm solid hyperechoic taller than wide thyroid nodule, per the report this also has punctate echogenic foci, TR 5 category meets criteria for biopsy. Another isthmus 1.2 cm solid isoechoic nodule noted, however this seems to have extrathyroidal extension per my assessment and also needs a biopsy. I would classify this as TR 5 category even though this is labeled as TR 3. Another subcentimeter right isthmus TR 3 category nodule noted. Patient currently denies heat or cold intolerance, diarrhea or constipation, hair loss, palpitation, anxiety,, mood changes, changes in appearance of eyes or vision changes, tremors, increased diaphoresis or dry skin Lost 30 lbs in the past 3 years or so . ?Some low energy because of pain. Patient denies any difficulty swallowing, pain on swallowing or voice changes or difficulty breathing. Patient denies any history of childhood neck radiation. Denies having ever used lithium, amiodarone or biotin supplements. Patient denies any family history of thyroid cancer or thyroid disease. Interval history 03/18/2025: Underwent FNA of the left inferior 1.5 cm in the isthmus 1.2 cm nodules, both with benign cytology, [place] category 2. Physical exam General: sitting comfortably in no acute distress HEENT: normocephalic/atraumatic Neck: supple, palpable 1 cm isthmus nodule Cardiac: normal heart sounds Pulm: normal breath sounds B/L, no added breath sounds Abd: not distended, no tenderness Extremities: no edema, no signs of myxedema Laboratory Tests 03/03/25 07:51 TSH 1.59 US THYROID 03/03/25 CLINICAL INFORMATION: Nontoxic goiter, unspecified. COMPARISON: None available. TECHNIQUE: Linear transducer grayscale and color Doppler examination with attention to the region of the thyroid. FINDINGS: SIZE: Measurements of the thyroid lobes and nodules are given in sagittal, anteroposterior and transverse dimensions respectively. Right Thyroid Lobe: 4.4 x 1.3 x 2.0 cm, volume 6 mL. Parenchyma: The gland echotexture is normal. Thyroid vascularity is normal. Left Thyroid Lobe: 4.6 x 1.6 x 1.4 cm, volume 5.4 mL. Parenchyma: The gland echotexture is normal. Thyroid vascularity is normal. Isthmus: 0.3 cm in maximum AP dimension. Estimated total number of nodules greater than or equal to 1 cm: 2. Direct Chill Caster nodules are described as follows: 1. Location: Lower pole left lobe. Size: 1.5 x 1.1 x 0.9 cm, volume 0.8 mL. Nodule characteristics: Composition: Solid/almost completely solid (2). Echogenicity: Hyperechoic (1). Shape: Taller than wide (3). Margins: Smooth (0). Echogenic Foci: Punctate echogenic foci (3). ACR TI-RADS total points: 9 ACR TI-RADS category: 5 2. Location: Right mid line Isthmus. Size: 1.2 x 0.8 x 1.0 cm, volume 0.5 mL. Nodule characteristics: Composition: Solid (2). Echogenicity: Hyperechoic (1). Shape: Not taller than wide (0). Margins: Smooth (0). Echogenic Foci: None (0). ACR TI-RADS total points: 3 ACR TI-RADS category: 3 3. Location: Right side, isthmus. Size: 0.6 x 0.4 x 0.6 cm, volume 0.09 mL. Nodule characteristics: Composition: Solid (2). Echogenicity: Hyperechoic (1). Shape: Not taller than wide (0). Margins: Ill-defined (0). Echogenic Foci: None (0). ACR TI-RADS total points: 3 ACR TI-RADS category: 3 NODES: No lymphadenopathy is seen in the tissue surrounding the thyroid gland. US/US thyroid IMPRESSION: ACR TI RADS 5, lower pole left thyroid lobe. The possibility of a parathyroid adenoma cannot be excluded ACR TI RADS 3, right-sided isthmus. [facility] Medical History (Updated 03/16/25 @ 15:51 by Sammi Leal MD) Multinodular goiter Hives Surgical History H/O tubal ligation History of cholecystectomy Family History Mother Hypertension Maternal Uncle Cancer Maternal Grandfather Cancer Family/Other Mental health disorder Substance use disorder Social History (Updated 02/05/25 @ 15:29 by Lucy Ignacio MD) Housing: Apartment Alcohol intake: current Alcohol intake frequency: holidays/special occasions only Alcohol type: hard liquor Patient Tobacco Use Status: Former Tobacco user e-Cigarette/Vaping Use: Never Used Second Hand Smoke Exposure: No service: No Current occupational status: employed Current occupational exposures/hazards: No Cognitive needs: No Hearing needs: No Vision needs: No Female Reproductive History Menstrual Age of Menarche: 11 Assessment & Plan Assessment & Plan (1) Multinodular goiter: Code(s): E04.2 - Nontoxic multinodular goiter Category: Medical Plan: 44-year-old female coming in today for initial evaluation of multinodular goiter. Ultrasound of the thyroid done 03/03/2025: I reviewed the images myself which show a left lower pole 1.5 cm solid hyperechoic taller than wide thyroid nodule, per the report this also has punctate echogenic foci, TR 5 category meets criteria for biopsy. Another isthmus 1.2 cm solid isoechoic nodule noted, however this seems to have extrathyroidal extension per my assessment and also needs a biopsy. I would classify this as TR 5 category even though this is labeled as TR 3. Another subcentimeter right isthmus TR 3 category nodule noted. 03/18/2025: Underwent FNA of the left inferior 1.5 cm in the isthmus 1.2 cm nodules, both with benign cytology, [place] category 2. Discussed with the patient that benign results yield less than 3% chance of malignancy. At this point we will plan to repeat an ultrasound in 1 year from now prior to follow up. No compressive symptoms, normal TSH from February 2025. Plan: -ordered a ultrasound of the thyroid to be done end of February 2026, with follow up in March 2026 in 1 year -ordered TSH with reflex free T4 to be done prior to follow up in 1 year Plan See above Orders: Orders 2 TSH reflex Free T4 03/08/26 E04.2 - Nontoxic multinodular goiter US thyroid 03/08/26 E04.2 - Nontoxic multinodular goiter Patient Instructions: Do thyroid ultrasound end of February 2026, someone we will call you to schedule this, this should be done a few weeks prior to your next appointment with me in 1 year in March 2026 Do blood work a few days prior to your next appointment with me in March 2026, orders have been placed Coding Level of Care Code Est Pt Level 3 (97381) Diagnoses Multinodular goiter E04.2
--- OUTSIDE RECORDS SUMMARY | 2025-04-01 13:12 | XMS_ITS | Clinical Summary ---
Author Organization [facility] 444 [facility] Address [address] [place] [phone] Phone Care Team Providers Care Patents Examiner Name Role Phone Sunny Jessica MD Primary Care Provider +1- [phone] Allergies Active Allergy Reactions Criticality Noted Date [...] not receive a new machine from [facility] because the prescription is there since February 2022. I do not have any compliance report. I explained her that she will need to bring the machine or the SMS card to [facility] for us to see the compliance. In this way that will allow us to evaluate if the machine is working. If the machine is not working she may need another sleep study to see if she knew new parameters before replacing the machine. The plan is the followin. I advise to bring the machine or the SMS card to [facility] for us to review the compliance report [...] and depression Dermatitis 08/04/2018 DX:Dermatitis; C OMMENT: [facility] ER 08/02/18 Family history of [...] is recommended in 1 year. Mammo Location: [facility], [address] [place] [address], [id number], . -------- FINAL REPORT -------- Dictated By: Melly Castro Dictated Date: 11/20/2024 16:11 ET Assigned Physician: Melly Castro Reviewed and Electronically Signed By: Melly Castro Signed Date: 11/20/2024 16:21 ET Workstation ID: [id number] Transcribed By: Self Edit Transcribed Date: 11/20/2024 [...] is recommended in 1 year. Mammo Location: [facility], [address] [place] [address], [phone], . -------- FINAL REPORT -------- Dictated By: Melly Castro Dictated Date: 11/20/2024 16:11 ET Assigned Physician: Melly Castro Reviewed and Electronically Signed By: Melly Castro Signed Date: 11/20/2024 16:21 ET Workstation ID: [id number] Transcribed By: Self Edit Transcribed Date: 11/20/2024 [...] l Result * Depression Screening (12/04/2023) Pathologist [facility] Depression Screening Abstracted Historical Provider HEALTH MAINTENANCE Final Result * Cervical Cancer Screening: HPV (05/06/2020) Pathologist [facility] Cervical Cancer Screening: HPV Negative, Abstracted Historical Provider HEALTH MAINTENANCE Final Result from Last 3 Months or Most Recently Relevant to Health Maintenance Insurance [facility] Care Teams Patents Examiner Relationship Specialty Start Date End Date Sunny Jessica MD [address] [place] [address] PCP - General Internal Medicine 09/01/22
== END 2025-04-01 12:42 | disposition home or self-care (01) ==
LOC: HO.ENCR 12:20
PROVIDERS: PCP Internal Medicine; Visit Provider Student in an Organized Health Care Education/Training Program
DX: E04.2 Nontoxic multinodular goiter (principal)
CPT/HCPCS: 99213

== ENCOUNTER → 2025-05-22 15:19 | Outpatient (BNVA) | payer OTHER, SELFPAY | PROVIDERS: PCP Internal Medicine; Visit Provider Physician Assistant | DX: S80.02XA Contusion of left knee, initial encounter (principal); S93.401A Sprain of unspecified ligament of right ankle, initial encounter; S60.211A Contusion of right wrist, initial encounter; W18.30XA Fall on same level, unspecified, initial encounter | CPT/HCPCS: 73564; 73610; 99204 ==

== ENCOUNTER → 2025-06-10 14:16 | Outpatient (BNVA) | payer OTHER, SELFPAY | PROVIDERS: PCP Internal Medicine; Visit Provider Physician Assistant Medical | DX: S80.02XA Contusion of left knee, initial encounter (principal); S93.401A Sprain of unspecified ligament of right ankle, initial encounter; S60.211A Contusion of right wrist, initial encounter; W18.30XA Fall on same level, unspecified, initial encounter | CPT/HCPCS: 99213 ==

== ENCOUNTER → 2025-07-02 15:42 | Outpatient (BNVA) | payer OTHER, SELFPAY | PROVIDERS: PCP Internal Medicine; Visit Provider Physician Assistant Medical | DX: S80.02XD Contusion of left knee, subsequent encounter (principal); S93.401D Sprain of unspecified ligament of right ankle, subsequent encounter; S60.211D Contusion of right wrist, subsequent encounter; W18.30XD Fall on same level, unspecified, subsequent encounter; Z02.79 Encounter for issue of other medical certificate | CPT/HCPCS: 99213 ==

== ENCOUNTER 2025-08-10 16:31 | Outpatient (AMB) | payer BC, SELFPAY ==
[2025-08-10 16:59] VITALS: BP 130/78; PULSE 71; O2SAT 98; BMI 31.6
--- NOTE | 2025-08-10 16:59 | A.OFFPC_ITS ---
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 Accompanied by: Self / Same As Patient Allergies morphine (MORPHINE) Allergy (Unknown, Verified 08/10/25 17:38) DIFFICULTY BREATHING Medication List - Last Reconciled 08/10/25 by Lucy Ignacio MD cholecalciferol (vitamin D3) 50 mcg PO DAILY 90 days cyclobenzaprine 5 mg PO BEDTIME PRN ibuprofen 800 mg PO TID magnesium 250 mg PO DAILY nabumetone 750 mg PO BID PRN 30 days Tobacco use date assessed: 02/05/25 Dental Screening Dental Screen Date: 08/10/25 Did you have a dental visit in the last 12 months?: Yes Did you have a dental problem in the last 6 months where you did not have access to dental care?: No Was dental information given to patient?: Patient has dentist HPI HPI Comments History of Present Illness Details The patient is a 45-year-old female presenting with joint pain and muscle spasms. The patient reports persistent joint pain, particularly in the shoulder, exacerbated by physical activity, leading to reduced activity levels. Previous evaluations included a negative rheumatoid factor, but a positive cyclic citrullinated peptide test, suggesting rheumatoid arthritis. Muscle spasms in the shoulder have been present for a similar duration, described as painful and managed with muscle relaxants as needed. Perimenopausal symptoms include flu-like symptoms and body aches preceding her menstrual cycle, consistent over the past three months. The patient sustained an ankle injury following a fall, resulting in persistent swelling and occasional instability. She is awaiting a rheumatology consultation to further evaluate her joint symptoms. [facility] Medical History (Updated 08/10/25 @ 20:13 by Lucy Ignacio MD) Multinodular goiter Hives Surgical History H/O tubal ligation History of cholecystectomy Family History Mother Hypertension Maternal Uncle Cancer Maternal Grandfather Cancer Family/Other Mental health disorder Substance use disorder Social History Housing: Apartment Alcohol intake: current Alcohol intake frequency: holidays/special occasions only Alcohol type: hard liquor Patient Tobacco Use Status: Former Tobacco user Tobacco use type: Cigarette e-Cigarette/Vaping Use: Never Used Second Hand Smoke Exposure: No service: No Current occupational status: employed Current occupational exposures/hazards: No Cognitive needs: No Hearing needs: No Vision needs: No Female Reproductive History Menstrual Age of Menarche: 11 Questionnaire PHQ-9 Over the last 2 weeks, how often have you been bothered by any of the following problems? 1. Little interest or pleasure in doing things: several days 2. Feeling down, depressed, or hopeless: several days 3. Trouble falling or staying asleep, or sleeping too much: several days 4. Feeling tired or having little energy: several days 5. Poor appetite or overeating: several days 6. Feeling bad about yourself - or that you are a failure or have let yourself or your family down: several days 7. Trouble concentrating on things, such as reading the newspaper or watching television: not at all 8. Moving or speaking so slowly that other people could have noticed. Or the opposite - being so fidgety or restless that you have been moving around a lot more than usual: not at all 9. Thoughts that you would be better off or of hurting yourself in some way: not at all Total score: 6 Depression Screening Interpretation: Positive Depression Screening Follow-up: Existing condition and Follow-up Visit Requested Depression Screening Done: Yes 78379 - PHQ-9 Billing: Yes Source: Developed by Drs. Luigi Painting, Rupal Duke, Torsten Melo and colleagues, with an educational josy from [employer]. Thrive Questionnaire Date Thrive assessed: 02/05/25 I am a: Patient What is your living situation today?: I have a steady place to live Within the past 12 months, did the food you bought not last and you didn't have the money to get more?: Never true Within the past 12 months, did you worry whether your food would run out before you got money to buy more?: Never true Do you have trouble paying for medicines?: I choose not to answer this question Do you have trouble getting transportation to medical appointments?: No Do you have trouble paying your heating and electricity bill?: I choose not to answer this question Do you have trouble taking care of your child, family member or friend?: No Do you have trouble with day-to-day activities such as bathing, preparing meals, shopping, managing finances, etc.?: I choose not to answer this question Are you currently unemployed and looking for a job?: No Are you interested in more education?: No Please select the resources that you would like help with: None Currently or been in a relationship where the following occur: No concerns reported THRIVE Score: 0 AUDIT C Alcohol Use Questionnaire (AUDIT-C) 1. How often do you have a drink containing alcohol?: Monthly or less 2. How many drinks containing alcohol do you have on a typical day when you are drinking?: 1 or 2 3. How often do you have six or more drinks on one occasion?: Never Total Score: 1 ALTA-7 AMB Questionnaire ALTA-7 Date ALTA - 7 assessed: 02/05/25 Feeling nervous, anxious, or on edge: 1 = Several days Not being able to stop or control worryin = Several days Worrying too much about different things: 1 = Several days Trouble relaxin = Several days Being so restless that it is hard to sit still: 1 = Several days Becoming easily annoyed or irritable: 1 = Several days Feeling afraid as if something awful might happen: 0 = Not at all Total ALTA-7 score (0-4 normal; 5-9 mild; 10-14 moderate; 15-21 severe): 6 Source: Developed by Drs. Luigi Painting, Rupal Duke, Torsten Melo and colleagues, with an educational josy from [employer]. ALTA-7 Assessment Billing ALTA-7 Assessment Tool: ALTA-7 Assessment 39640 Review of Systems Const All systems reviewed & are unremarkable except as noted in HPI and below Card Denies chest pain at rest, Denies chest pain with activity, Denies edema, Denies irregular heart rhythm, Denies claudication, Denies dyspnea, Denies dyspnea on exertion, Denies orthopnea, Denies paroxysmal nocturnal dyspnea and Denies slow heart rate Resp Denies cough, Denies dyspnea and Denies dyspnea on exertion Physical exam (Primary Care) Vital Signs: Last Vital Signs Pulse 71 09/29/25 16:59 BP 130/78 08/10/25 16:59 Pulse Ox 98 08/10/25 16:59 Oxygen Delivery Method Room Air 08/10/25 16:59 BMI result Body Mass Index 31.6 BMI Assessment/Plan discussion: High BMI High, discussed plan: lifestyle, weight reduction, dietary and physical activity Tobacco/Smoking Status: Tobacco use Status Tobacco use date assessed 02/05/25 08/10/25 17:00 Patient Tobacco Use Status Former Tobacco user 08/10/25 17:00 Tobacco use type Cigarette 08/10/25 17:00 e-Cigarette/Vaping Use Never Used 08/10/25 17:00 PHQ-9: PHQ-9 Score PHQ-9: Total score 6 08/10/25 17:44 Depression Screening Interpretation: Positive Depression Screening Follow-up: Existing condition and Follow-up Visit Requested Thrive Assessment: Date of Thrive Assessment Date Thrive assessed 02/05/25 08/10/25 17:00 Currently or been in a relationship where the following occur: No concerns reported Resp Effort & Inspection: normal respiratory effort Auscultation: clear to auscultation bilaterally Cardio Jugular venous distension: no JVD Rate: regular rate Rhythm: regular rhythm Heart sounds: S1 normal heart sound present and S2 normal heart sound present Extrem General: Yes full ROM Coding Level of Care Code Est Pt Level 3 (00650) Diagnoses Right shoulder pain M25.511 Primary osteoarthritis of both knees M17.0 Osteoarthritis type: primary Laterality: bilateral Cervical paraspinal muscle spasm M62.838 Additional Codes ALTA-7 Assessment Billing - ALTA-7 Assessment Tool: ALTA-7 Assessment 16733 ([id number]) PHQ-9 - 00202 - PHQ-9 Billing: Yes ([id number]) Time Spent (min) 18 Assessment & Plan Assessment & Plan (1) Right shoulder pain: Code(s): M25.511 - Pain in right shoulder Category: Medical (2) Knee osteoarthritis: Code(s): M17.9 - Osteoarthritis of knee, unspecified Category: Medical Qualifiers: Osteoarthritis type: primary Laterality: bilateral Qualified Code(s): M17.0 - Bilateral primary osteoarthritis of knee (3) Cervical paraspinal muscle spasm: Code(s): M62.838 - Other muscle spasm Category: Medical Plan Plan 1. Pain in unspecified joint M25.50 The patient has a positive cyclic citrullinated peptide test, suggesting rheumatoid arthritis, despite a negative rheumatoid factor. A rheumatology consultation is scheduled to confirm the diagnosis and discuss potential treatments, including immunosuppressive therapy. 2. Other muscle spasm M62.838 The patient experiences muscle spasms in the shoulder, managed with muscle relaxants as needed. A prescription refill for muscle relaxants was provided to manage symptoms. 3. Unspecified injury of unspecified ankle, initial encounter S99.913J The patient sustained an ankle injury following a fall, resulting in swelling and instability. An x-ray was considered but deferred due to financial constraints. 4. Pain in unspecified shoulder M25.519 The patient reports persistent shoulder pain, exacerbated by physical activity. An x-ray was considered to evaluate the shoulder, but financial constraints were noted. Medications: Changed From cyclobenzaprine Do not drive or operate machinery for 8 hours after taking this medicine 5 mg PO BEDTIME PRN 20 tabs 0RF muscle spasm To cyclobenzaprine Do not drive or operate machinery for 8 hours after taking this medicine 5 mg PO BEDTIME PRN 30 tabs 1RF muscle spasm 30 days Refilled cholecalciferol (vitamin D3) 50 mcg PO DAILY 90 caps 1RF 90 days Discontinued nabumetone Discontinued Reason: Patient Completed Course 750 mg PO BID 30 days PRN 60 tabs 0RF pain
--- OUTSIDE RECORDS SUMMARY | 2025-08-10 18:24 | XMS_ITS | Clinical Summary ---
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 Phone Sunny Jessica MD Primary Care Provider [phone] Allergies Active Allergy Reactions Criticality Noted Date [...] of 31.0 to 31.9 in adult Immunizations Immunization Administration Dates Next Due Hepatitis B Pediatric [...] and depression Dermatitis 08/04/2018 DX:Dermatitis; C OMMENT: [facility] 08/02/18 Family history of ovarian [...] 19+ 3-dose series) 1999 05/10/2009, 01/08/2009, 12/10/2008 Colorectal Cancer Screening: Colonoscopy 10/21/2022 HIV Screening 10/21/2022 Hepatitis C Screening 10/21/2022 Social Influencers of Health Screening 10/21/2022 DTaP,Tdap,and Td Vaccines (2 - Td or Tdap) 06/06/2023 06/06/2013 Depression Screening 11/12/2024 12/04/2023 Cervical Cancer Screening: HPV 05/06/2025 05/06/2020 COVID-19 Vaccine ( season) 2025 Influenza Vaccine (#1) 2025 Breast Cancer Screening 11/20/2026 11/20/19, 11/08/2024, [...] 5 Years) and At-Risk Patients (6 to 49 Years) Aged Out No longer eligible based [...] EST Abnormal mammogram LIPID PANEL Routine 12/06/2023 DEPRESSION SCREENING Routine 12/04/2023 HPV Routine 05/06/2020 from Last 3 Months or Most Recently Relevant to Health Maintenance Results * MG Mammo Digital Diagnostic w Aki Left (11/20/2024 3:15 PM EST) Anatomical Region Laterality Modality Breast Left Mammography 11/20/2024 4:11 PM EST Impressions 11/20/2024 4:21 PM EST LEFT BREAST: Simple cyst at 9 o'clock position. Benign, no evidence of malignancy. Normal interval follow-up is recommended in 12 months. Findings and recommendations were discussed with the patient. BREAST DENSITY: C - The breasts are heterogeneously dense which may obscure small masses. BI-RADS CATEGORY: 2 - BENIGN RECOMMENDATION: Mammography: Screening bilateral mammogram is recommended in 1 year. Ultrasound: Screening bilateral mammogram is recommended in 1 year. Mammo Location: [facility], [address] [place] [address], [id number], . -------- FINAL REPORT -------- Dictated By: Melly Castro Dictated Date: 11/20/2024 16:11 ET Assigned Physician: Melly Castro Reviewed and Electronically Signed By: Melly Castro Signed Date: 11/20/2024 16:21 ET Workstation ID: [id number] Transcribed By: Self Edit Transcribed Date: 11/20/2024 [...] and read in conjunction with computer-aided detection. Tomosynthesis as well as 2-D C view imaging [...] as far back as 2020. Findings likely represented overlapping fibroglandular breast tissue. -0.4 cm mass in the lower inner quadrant at about 5 to 6 cm from the nipple is better seen on the ML 90 degrees 31/50, spot MLO 30/55 and spot CC 21/45. Targeted ultrasound of the left breast was performed to location of the mammographic finding. The survey shows a 0.4 x 0.4 x 0.3 cm simple cyst at 9 o'clock position 7 cm from the nipple. No internal vascularity demonstrated with color Doppler evaluation. [...] is recommended in 1 year. Mammo Location: [facility], [address] [place] [address], [address], . -------- FINAL REPORT -------- Dictated By: Melly Castro Dictated Date: 11/20/2024 16:11 ET Assigned Physician: Melly Castro Reviewed and Electronically Signed By: Melly Castro Signed Date: 11/20/2024 16:21 ET Workstation ID: [id number] Transcribed By: Self Edit Transcribed Date: 11/20/2024 16:21 ET Sunny Jessica MD IMG BI PROCEDURES Final Res ult * Lipid panel (12/06/2023) Pathologist [facility] LDL/HDL Ratio 3 0 - 4 Triglycerides 62 0 - 150 mg/dL Cholesterol 165 0 - 200 mg/dL HDL 58 >=40 mg/dL LDL Cholesterol 95 0 - 100 mg/dL Blood Venous blood specimen / Unknown Result [facility] Historical Provider LAB BLOOD ORDERABLES Mayda l Result * Depression Screening (12/04/2023) Pathologist [facility] Depression Screening Abstracted [facility] Provider HEALTH MAINTENANCE Final Result * Cervical Cancer Screening: HPV (05/06/2020) Pathologist [facility] Cervical Cancer Screening: HPV Negative, Abstracted Historical Provider HEALTH MAINTENANCE Final Result from Last 3 Months or Most Recently Relevant to Health Maintenance Insurance [facility] 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
== END 2025-08-10 17:53 | disposition home or self-care (01) ==
LOC: HO.HMCH 16:32
PROVIDERS: PCP Internal Medicine; Visit Provider Internal Medicine
DX: M25.511 Pain in right shoulder (principal); M17.0 Bilateral primary osteoarthritis of knee; M62.838 Other muscle spasm

== ENCOUNTER → 2025-08-10 16:31 | Outpatient (BNVA) | payer BC, SELFPAY | PROVIDERS: PCP Internal Medicine; Visit Provider Internal Medicine | DX: M25.511 Pain in right shoulder (principal); M62.838 Other muscle spasm; N95.8 Other specified menopausal and perimenopausal disorders; M17.0 Bilateral primary osteoarthritis of knee | CPT/HCPCS: 96127 ==

== ENCOUNTER 2025-09-24 10:47 | Outpatient (AMB) | payer BC, SELFPAY ==
--- NOTE | 2025-09-24 10:57 | MHC.OFFVIS ---
Vital Signs 09/24/25 11:02 Height 5 ft 1 in Weight 167 lb 1.766 oz BMI 31.6 BP 134/82 Blood Pressure Location Lt brachial Position Sitting Pulse 71 Pulse Source Pulse Oximeter Pulse Oximetry (%) 98 Oxygen Delivery Method Room Air Intake Visit Reasons: joint pain Intake Note: Patient presents for joint pain follow up. Allergies morphine (MORPHINE) Allergy (Unknown, Verified 09/24/25 11:02) DIFFICULTY BREATHING Medication List - Last Reconciled 09/24/25 by Ileana Harrison MD cholecalciferol (vitamin D3) 1,250 mcg PO QWEEK 90 days cyclobenzaprine 5 mg PO BEDTIME PRN 30 days ibuprofen 800 mg PO TID magnesium 250 mg PO DAILY HPI Comments Details: Patient is a 45-year-old female with non toxic multinodular goiter here today for evaluation of polyarthralgias in the setting of elevated CCP Has been having knee issues since her 20s, was told she had arthritis Joint pain affects wrists, back, ankles, and shoulders Unsure of family history [place] that one of her cousins has fibromyalgia Has intermittent AM stiffness (not every day) lasting about 30 mins No swelling noted but she did note that in the past she would have some swelling of her knees but this no longer occurs Will take ibuprofen for pain which helps Saw Rheumatology in the past and was told she did not have an underlying inflammatory disease [facility] Medical History Multinodular goiter Hives Surgical History H/O tubal ligation History of cholecystectomy Family History Mother Hypertension Maternal Uncle Cancer Maternal Grandfather Cancer Family/Other Mental health disorder Substance use disorder Social History Housing: Apartment Alcohol intake: current Alcohol intake frequency: holidays/special occasions only Alcohol type: hard liquor Patient Tobacco Use Status: Former Tobacco user Tobacco use type: Cigarette e-Cigarette/Vaping Use: Never Used Second Hand Smoke Exposure: No service: No Current occupational status: employed Current occupational exposures/hazards: No Cognitive needs: No Hearing needs: No Vision needs: No Female Reproductive History Menstrual Age of Menarche: 11 Review of Systems Narrative Review of Systems Constitutional: Denies fever, chills, weight loss ENT: Denies vision changes, eye pain or eye redness, dental caries, dry mouth GI: Denies nausea, vomiting, diarrhea, abdominal pain, change in BM Pulm: Denies SOB, HANDLEY, hemoptysis, wheezing Cards: Denies chest pain, palpitations Skin: Denies Raynaud's, rash, nail changes, photosensitivity, 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 Well appearing and in no apparent painful distress MSK Hands Right Hand: Able to make a fist. No swelling but TTP of the 4th and 5th MCPs, 4th and 5th PIPs Left Hand: Able to make a fist. No swelling but TTP of the 4th and 5th MCPs, 4th and 5th PIPs Wrists Right Wrist: Full ROM to flexion and extension. No swelling. Mild TTP Left Wrist: Full ROM to flexion and extension. No swelling. Mild TTP Elbows Right Elbow: Full ROM. No swelling or TTP. No TTP of the medial epicondyle. TTP of the lateral epicondyle Left Elbow: Full ROM. No swelling or TTP. TTP of the medial epicondyle. TTP of the lateral epicondyle Shoulders Right shoulder: Full ROM. No swelling noted. No TTP of the AC joint. TTP of the subacromial bursa. No TTP of the posterior shoulder Left shoulder: Full ROM. No swelling noted. No TTP of the AC joint. TTP of the subacromial bursa. No TTP of the posterior shoulder Positive H-K maneuver bilaterally Hip bursa: TTP R>L Knees Right knee: Full ROM. No swelling noted. TTP of the knee joint line. TTP of pes anserine bursa Left knee: Full ROM. No swelling noted. TTP of the knee joint line. TTP of pes anserine bursa. Crepitations felt bilaterally Ankles Right ankle: Good ankle dorsiflexion and plantar flexion. No swelling. No TTP of the ankle joint but TTP of the subtalar joint Left ankle: Good ankle dorsiflexion and plantar flexion. No swelling. No TTP of the ankle joint but TTP of the subtalar joint Feet Right foot: Negative squeeze test Left foot: Negative squeeze test Tender points? No tenderness to palpation of the bilateral trapezius, supraspinatus, anterior costochondral junctions, bilateral suboccipital muscle insertions SKIN No rashes Vital Signs: Last Vital Signs Pulse 71 09/24/25 11:02 BP 134/82 09/24/25 11:02 Pulse Ox 98 09/24/25 11:02 Oxygen Delivery Method Room Air 09/24/25 11:02 BMI result Body Mass Index 31.6 Results Reviewed Results Reviewed: Laboratory Tests 12/13/23 03/03/25 10:36 07:51 WBC 5.4 RBC 4.70 Hgb 13.3 Hct 40.9 Plt Count 332 ESR 16 Sodium 141 Potassium 4.0 Chloride 109 H Carbon Dioxide 25 BUN 13 Creatinine 0.63 AST 18 ALT 9 C-Reactive Protein 0.25 25-OH Vitamin D Total 10.3 L Laboratory Tests 03/03/25 07:51 Rheumatoid Factor 13.6 Cycl Citrul Peptide IgG 199 H Assessment & Plan Assessment & Plan (1) Polyarthralgia: Code(s): M25.50 - Pain in unspecified joint Category: Medical Plan: #Polyarthralgia in the setting elevated CCP Patient is a 45-year-old female here today for evaluation of polyarthralgias in the setting of an elevated CCP. 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 Plan: #Long-term Use of Hydroxychloroquine Discussed with patient the risks and benefits of hydroxychloroquine in managing the rheumatic condition Benefits include: - Reduced pain, reduce mortality, maintenance of remission and reduction of flares Risks include: - GI upset, skin hyperpigmentation, retinal toxicity (especially after more than 5 years of use), myopathy Advised yearly ophthalmology visits Plan I spent 45 minutes reviewing the record and labs, taking a history, examining the patient, discussing the treatment plan, ordering diagnostic work up and documenting in the medical record Orders: Orders XR knee RT 3V 09/24/25 M25.50 - Pain in unspecified joint XR knee LT 3V 09/24/25 M25.50 - Pain in unspecified joint XR hand RT min 3V 09/24/25 M25.50 - Pain in unspecified joint XR wrist LT min 3V 09/24/25 M25.50 - Pain in unspecified joint XR ankle RT min 3V 09/24/25 M25.50 - Pain in unspecified joint XR ankle LT min 3V 09/24/25 M25.50 - Pain in unspecified joint XR sacroiliac joint min 3V 09/24/25 M25.50 - Pain in unspecified joint XR hand LT min 3V 09/24/25 M25.50 - Pain in unspecified joint XR wrist RT min 3V 09/24/25 M25.50 - Pain in unspecified joint XR lumbar spine 4V min 09/24/25 M25.50 - Pain in unspecified joint Complete Blood Count Auto Diff 4 Months Z79.899 - Other [place] drug therapy Comprehensive Met. 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
[2025-09-24 11:02] VITALS: BP 134/82; PULSE 71; O2SAT 98; BMI 31.6
--- OUTSIDE RECORDS SUMMARY | 2025-09-24 13:19 | XMS_ITS | Clinical Summary ---
Author Organization [facility] [address] [facility] Address [address] [place] [phone] Phone Care Team Providers Care Party Plan Selling Distributor Name Role Phone Sunny Jessica MD Primary Care Provider [phone] Allergies Active Allergy Reactions Criticality Noted Date [...] did not receive a new machine from [facility] because the prescription is there since February 2022. I do not have any compliance report. I explained her that she will need to bring the machine or the SMS card to [facility] for us to see the compliance. In this way that will allow us to evaluate if the machine is working. If the machine is not working she may need another sleep study to see if she knew new parameters before replacing the machine. The plan is the followin. I advise to bring the machine or the SMS card to [facility] for us to review the compliance report [...] and depression Dermatitis 08/04/2018 DX:Dermatitis; C OMMENT: [facility] ER 08/02/18 Family history of [...] Health Maintenance Due Date Last Done Comments Colorectal Cancer Screening: Colonoscopy 1980 Hepatitis B Vaccines (1 of 3 - 19+ 3-dose series) 1999 05/10/2009, 01/08/2009, 12/10/2008 HPV Vaccines (1 - 3-dose SCDM series) 2007 HIV Screening 10/21/2022 Hepatitis C Screening 10/21/2022 Social Influencers of Health Screening 10/21/2022 DTaP,Tdap,and Td Vaccines (2 - Td or Tdap) 06/06/2023 06/06/2013 Depression Screening 11/12/2024 12/04/2023 Cervical Cancer Screening: HPV 05/06/2025 05/06/2020 COVID-19 Vaccine (1 - season) 2025 Influenza Vaccine (#1) 2025 Breast Cancer Screening 11/20/2026 11/20/19, 11/08/2024, 10/29/2023, Additional history exists Cholesterol Screening (Lipid Panel) 12/06/2028 12/06/2023 RSV Immunization Adult Patients (1 - 1-dose 75+ series) 2055 HIB Vaccines Aged Out No longer eligi [...] is recommended in 1 year. Mammo Location: [facility], [address] [place] [address], [id number], . -------- FINAL REPORT -------- Dictated By: Melly Castro Dictated Date: 11/20/2024 16:11 ET Assigned Physician: Melly Castro Reviewed and Electronically Signed By: Melly Castro Signed Date: 11/20/2024 16:21 ET Workstation ID: [id number] Transcribed By: Self Edit Transcribed Date: 11/20/2024 [...] is recommended in 1 year. Mammo Location: [facility], [address] [place] [address], [id number], . -------- FINAL REPORT -------- Dictated By: Melly Castro Dictated Date: 11/20/2024 16:11 ET Assigned Physician: Melly Castro Reviewed and Electronically Signed By: Melly Castro Signed Date: 11/20/2024 16:21 ET Workstation ID: [id number] Transcribed By: Self Edit Transcribed Date: 11/20/2024 16:21 ET Sunny Jessica MD IMG BI PROCEDURES Final Res ult * Lipid panel (12/06/2023) [facility] LDL/HDL Ratio 3 0 - 4 Triglycerides 62 0 - 150 mg/dL Cholesterol 165 0 - 200 mg/dL HDL 58 >=40 mg/dL LDL Cholesterol 95 0 - 100 mg/dL Blood Venous blood specimen / Unknown Result [facility] Leelee [facility] BLOOD ORDERABLES Mayda l Result * Depression Screening (12/04/2023) Pathologist [facility] Depression Screening Abstracted Historical Provider HEALTH MAINTENANCE Final Result * Cervical Cancer Screening: HPV (05/06/2020) [facility] Cervical Cancer Screening: HPV Negative, Abstracted Historical Provider HEALTH MAINTENANCE Final Result from Last 3 Months or Most Recently Relevant to Health Maintenance Insurance * Guarantor: Jena Gao Account Type Relation to Patient Date of Phone Billing Address Personal/Family Self [address] [place] [phone] [facility] Care Teams Party Plan Selling Distributor Relationship Specialty Start Date End Date Sunny Jessica MD [address] [place] [address] PCP - General Internal Medicine 09/01/22
== END 2025-09-24 11:49 | disposition home or self-care (01) ==
LOC: HO.RHES 10:48
PROVIDERS: PCP Internal Medicine; Visit Provider Student in an Organized Health Care Education/Training Program
DX: M25.50 Pain in unspecified joint (principal); Z51.81 Encounter for therapeutic drug level monitoring; Z79.899 Other long term (current) drug therapy
CPT/HCPCS: 99204